=== PATIENT | female | born 1940 | race Caucasian/White ===

== ENCOUNTER 2020-10-24 10:06 | Emergency (ER) | payer MEDICARE, SELFPAY ==
[2020-10-24] VITALS (12 sets, daily range): BP systolic 101–150; BP diastolic 55–97; PULSE 49–81; RESP 16; TEMP 36.7; O2SAT 99–100; BMI 26.9
--- NOTE | 2020-10-24 10:27 | XR_ITS ---
EXAMINATION: XR CHEST CLINICAL INFORMATION: Syncope COMPARISON: October 17, 2019 TECHNIQUE: AP portable view of the chest was obtained. FINDINGS: There is some mild chronic interstitial disease seen at the left base. No acute parenchymal disease, pneumothorax, or pleural effusion. There is some scarring noted within the left upper lobe. Heart normal size. No evidence of pulmonary edema. XR/XR chest 1V IMPRESSION: No acute disease.
--- NOTE | 2020-10-24 10:27 | ECG_ITS ---
Test Reason : WEAKNESS Blood Pressure : / mmHG Vent. Rate : 050 BPM Atrial Rate : 050 BPM P-R Int : 168 ms QRS Dur : 082 ms QT Int : 454 ms P-R-T Axes : 067 -30 -08 degrees QTc Int : 413 ms Sinus bradycardia Left axis deviation Nonspecific T wave abnormality Abnormal ECG When compared to the previous EKG of No significant changes seen Referred By: Leonila Chase Electronically Signed By:NAZARIO SMALL MD
--- NOTE | 2020-10-24 10:52 | CT_ITS ---
EXAMINATION: CT HEAD WITHOUT CONTRAST CLINICAL INFORMATION: Syncope. COMPARISON: None TECHNIQUE: Contiguous axial imaging was performed from the skull base to vertex without intravenous administration of contrast. This CT examination was performed using dose optimization techniques as appropriate, variously including the following: *Automated exposure control *Adjustment of mA and/or kV according to patient size (this includes techniques or standardized protocols for targeted exams where dose is matched to indication/reason for exam; i.e. extremities or head) *Use of iterative reconstruction technique DLP: 766 mGy-cm FINDINGS: There is no evidence of acute intracranial hemorrhage or territorial infarction. No abnormal mass effect or midline shift is seen. [place] to white matter differentiation is well preserved. No extra-axial fluid collections are identified. The lateral ventricles are symmetrical in size and configuration with moderate enlargement. There is mild prominence of cortical sulci. There is mild periventricular hypodensity in both cerebral hemispheres especially in frontoparietal lobes likely chronic small vessel ischemic changes. There is dystrophic calcification of pineal gland is noted. There is benign hyperostosis frontalis interna. The osseous structures and soft tissues are normal. The mastoid air cells and visualized portions of the paranasal sinuses are well aerated. CT/CT head/brain wo con IMPRESSION: No acute intracranial process seen. Chronic small vessel ischemic changes in both cerebral hemispheres.
--- NOTE | 2020-10-24 10:56 | ED_ITS ---
HPI - General Adult General Chief complaint: General Medical Stated complaint: ?DIFF BREATHING,DEMENTIA Time Seen by Provider: 10/24/20 10:27 Source: family Mode of arrival: EMS Limitations: other (dementia, very poor historian) History of Present Illness HPI narrative: 80 y/o female with history of Alzheimer's dementia, hypothyroidism, HLD, hx syncope, bradycardia, remote hx breast cancer, hx cervical cancer presenting via EMS with episode of almost passing out. reports she did not eat dinner last night and while at the breakfast table today she pushed her breakfast away. She then put her head on the table and was shaking all over. She was awake and talking gibberish which is not unusual for her given her dementia history. She also soiled herself, again which is not usual for her. He was able to get her up and walk her to the bedroom to lay down. He reports she was breathing heavily so he called 911. On EMS arrival patient was in no respiratory distress, SPO2 100%. She was awake and alert but confused which is her baseline. Patient denies all complaints on arrival. MD complaint: ?pre-syncope Onset (ago): hour(s) (2) Severity: moderate Relieving factors: none Exacerbating factors: none Associated symptoms: confusion and loss of appetite Treatments prior to arrival: none Related Data Home Medications Medication Instructions Recorded Confirmed Privigen 10/24/20 10/24/20 Synthroid 10/24/20 aspirin 10/24/20 donepezil 10/24/20 simvastatin 10/24/20 Allergies Allergy/AdvReac Type Severity Reaction Status Date / Time No Known Allergies Allergy Unverified 10/24/20 10:23 [No Known Allergies*] Review of Systems Review of Systems: patient with Alzhemier's - she currently denies a full 10 point review of systems Yes Unobtainable due to mental condition PMFSH Past Medical History Attestation statement: The following information was validated with the patient. Medical History Breast CA Dementia Hypercholesteremia Hypothyroid Social History Social History Smoked in Last 30 Days: No Use of substances other than those prescribed or required for medical reasons: No Advance Directives: No Advance Directives Information Provided: No Physical Exam Vital Signs: Vital Signs: Last Vital Signs Temp 98.0 F 10/24/20 10:16 Pulse 81 10/24/20 15:04 Resp 16 10/24/20 12:28 BP 147/97 H 10/24/20 15:04 Pulse Ox 99 10/24/20 10:16 Body Mass Index 26.9 Appearance: Alert. Oriented X1. No acute distress. Eyes: Pupils equal, round and reactive to light. ENT: Pharynx normal. Neck: Normal inspection. Neck supple. CVS: Normal heart rate and rhythm. Pulses normal. Respiratory: No respiratory distress. Breath sounds normal. Abdomen: Soft and nontender. +BS x4 Skin: Skin warm and dry. Normal skin color. Normal skin turgor. No rashes. Extremities: No lower extremity edema. Neuro: Oriented X 1. Pleasantly confused, normal speech. No motor deficit. No sensory deficit. Course Course Course Narrative: 80 y/o female with history of Alzhemier's, bradycardia, hx syncope last October now presenting with ?pre-syncopal episode today. Doubt seizure activity given patient was reportedly awake and alert during the episode and no post-ictal state for EMS. She is orthostatic on arrival, IVF infusing. She offers no complaints at this time and VS are normal. Will get CT head and metabolic workup. Reevaluation(s) Reevaluation #1: EKG showing sinus bradycardia - HR 60s on the monitor now. Could be cause of her possible pre-syncopal event. reports increased anxiety lately. Will repeat othostatic VS after IVF. Reevaluation #2: After 1L IVF patient is still orthostatic but denies dizziness with position changes. HR as low as 49 - not on betablockers. Will check TSH. She denies complaints and would like to go home. Will give 1 more liter IVF and repeat. Reevaluation #3: Orthostatics now negative. HR remain 49-70, patient is asymptomatic. She now appears anxious and is having episodes of shaking her arms and looking frightened. She stops when you tell her to stop. Her is able to calm her down. Medically she is cleared, case was discussed with Case Management. is denying the need for more services at this time. Will get PT evaluation. Additional Reevaluation(s): Patient did well with physical therapy. She does not meet criteria for inpatient admission and does not need acute rehab at this time. refusing VNA services. He would like to bring her home. Will d/c home in the care of her with plan to follow up with PCP this week. expresses understand and planning on contacting PCP in the morning. Instructed to return to hospital if symptoms recur. Medical Decision Making Lab Data Result diagrams: 10/24/20 10:52 10/24/20 10:52 Labs: Lab Results 10/24/20 10/24/20 10/24/20 Range/Units 10:52 10:52 10:52 WBC 7.0 (4.8-10.8) X10*3/uL RBC 4.27 (4.20-5.50) X10*6/uL Hgb 13.7 (12.0-16.0) g/dl Hct 40.1 (37-47) % MCV 93.9 (80-98) fL MCH 32.1 (27.0-33.0) pg MCHC 34.2 (31.0-35.0) g/dl RDW 12.7 (11.0-16.0) % Plt Count 214 (160-400) X10*3/uL MPV 9.4 (9.4-12.3) fL Immature Gran % (Auto) 0.3 (0.0-0.4) % Neut % (Auto) 72.2 (45-73) % Lymph % (Auto) 15.6 L (20-40) % [place] % (Auto) 8.0 (2-11) % Eos % (Auto) 2.9 (0-4) % Baso % (Auto) 1.0 (0-2) % Lymph # (Auto) 1.1 L (1.2-4.9) X10*3/uL [place] # (Auto) 0.6 (0.1-1.2) X10*3/uL Eos # (Auto) 0.2 (0.0-0.4) X10*3/uL Baso # (Auto) 0.1 (0.0-0.2) X10*3/uL Abs Immat Gran (auto) 0.02 (0.00-0.03) X10*3/uL Absolute Neuts (auto) 5.1 (2.0-8.3) X10*3/uL Absolute Nucleated RBC 0.000 (0.0-0.012) X10*3/uL Nucleated RBC % (auto) 0.0 (0.0-0.2) /100WBC Sodium 138 (135-145) mmol/L Potassium 4.3 (3.3-5.1) mmol/l Chloride 106 (96-108) mmol/L Carbon Dioxide 23 (22-29) mmol/L Anion Gap 13 (12-20) BUN 19 H (9-16) mg/dL Creatinine 1.12 (0.5-1.4) mg/dL Estim Creat Clear Calc 46.0 Estimated GFR 47 Random Glucose 101 (60-115) mg/dL Calcium 9.2 (8.4-10.2) mg/dL Magnesium 2.2 (1.6-2.6) mg/dL Total Bilirubin 1.5 H (0.0-1.0) mg/dL Direct Bilirubin 0.5 (0.0-0.5) mg/dL AST 23 (5-31) U/L ALT 17 (0-31) U/L Alkaline Phosphatase 64 (39-117) U/L Troponin I High Sens 3.9 (<3.5-17.0) ng/L Total Protein 6.5 (6.5-8.0) g/dL Albumin 3.8 (3.5-5.0) g/dL TSH 4.03 H (0.32-4.0) uIU/mL Urine Color Urine Appearance Urine pH (5.0-8.0) Ur Specific [place] (1.005-1.025) Urine Protein (NEG-TRACE) MG/DL Urine Glucose (UA) (NEG) MG/DL Urine Ketones (NEG) MG/DL Urine Blood (NEG) Urine Nitrite (NEG) Ur Leukocyte Esterase (NEG) 10/24/20 Range/Units 11:09 WBC (4.8-10.8) X10*3/uL RBC (4.20-5.50) X10*6/uL Hgb (12.0-16.0) g/dl Hct (37-47) % MCV (80-98) fL MCH (27.0-33.0) pg MCHC (31.0-35.0) g/dl RDW (11.0-16.0) % Plt Count (160-400) X10*3/uL MPV (9.4-12.3) fL Immature Gran % (Auto) (0.0-0.4) % Neut % (Auto) (45-73) % Lymph % (Auto) (20-40) % [place] % (Auto) (2-11) % Eos % (Auto) (0-4) % Baso % (Auto) (0-2) % Lymph # (Auto) (1.2-4.9) X10*3/uL [place] # (Auto) (0.1-1.2) X10*3/uL Eos # (Auto) (0.0-0.4) X10*3/uL Baso # (Auto) (0.0-0.2) X10*3/uL Abs Immat Gran (auto) (0.00-0.03) X10*3/uL Absolute Neuts (auto) (2.0-8.3) X10*3/uL Absolute Nucleated RBC (0.0-0.012) X10*3/uL Nucleated RBC % (auto) (0.0-0.2) /100WBC Sodium (135-145) mmol/L Potassium (3.3-5.1) mmol/l Chloride (96-108) mmol/L Carbon Dioxide (22-29) mmol/L Anion Gap (12-20) BUN (9-16) mg/dL Creatinine (0.5-1.4) mg/dL Estim Creat Clear Calc Estimated GFR Random Glucose (60-115) mg/dL Calcium (8.4-10.2) mg/dL Magnesium (1.6-2.6) mg/dL Total Bilirubin (0.0-1.0) mg/dL Direct Bilirubin (0.0-0.5) mg/dL AST (5-31) U/L ALT (0-31) U/L Alkaline Phosphatase (39-117) U/L Troponin I High Sens (<3.5-17.0) ng/L Total Protein (6.5-8.0) g/dL Albumin (3.5-5.0) g/dL TSH (0.32-4.0) uIU/mL Urine Color YELLOW Urine Appearance CLEAR Urine pH 7.5 (5.0-8.0) Ur Specific [place] 1.010 (1.005-1.025) Urine Protein NEG (NEG-TRACE) MG/DL Urine Glucose (UA) NEG (NEG) MG/DL Urine Ketones NEG (NEG) MG/DL Urine Blood NEG (NEG) Urine Nitrite NEG (NEG) Ur Leukocyte Esterase NEG (NEG) ECG Data Attestation: I personally reviewed and interpreted this ECG as follows: Interpretation: sinus bradycardia, HR 50, nonspecific T wave abnormality, left axis deviasion Discharge Plan Discharge Clinical Impression: Bradycardia, Pre-syncope Patient Disposition: Home, Self-Care Instructions: Bradycardia (ED), Anxiety (ED) Additional Instructions: Your lab workup today was unremarkable. Your CT scan of your head showed no acute changes. Your chest x-ray was normal and oxygen level was normal. You were likely slightly dehydrated. You were given IV fluids with improvement in your vital signs. Rest and stay hydrated. It is likely that increased anxiety is playing a role in these episodes. Recommend following up with your doctor tomorrow. Recommend following up with Cardiology for further assessment of your occasionally slow heart rate. You have a documented history of this dating back to last year. If you develop recurrent episodes or develop any other concerning symptom call 911 or come back to the ER for further evaluation. Prescriptions: No Action Privigen RF: 0 Synthroid RF: 0 aspirin RF: 0 donepezil RF: 0 simvastatin RF: 0 Referrals: Elias Sylvester MD [Physician] - 3 days (sinus bradycardia)
[2020-10-24 10:58] LABS: Basophils Absolute Auto 0.1 X10*3/uL (0.0-0.2); Eosinophils Absolute Auto 0.2 X10*3/uL (0.0-0.4); Eosinophils Percent Auto 2.9 % (0-4); Hematocrit 40.1 % (37-47); Hemoglobin 13.7 g/dl (12.0-16.0); Imm Gran Abs Auto 0.02 X10*3/uL (0.00-0.03); Imm Gran Pct Auto 0.3 % (0.0-0.4); Lymphocytes Absolute Auto 1.1 X10*3/uL (1.2-4.9); Lymphocytes Percent Auto 15.6 % (20-40); MANUAL DIFF FLAG NO; Mean Corpuscular HGB Conc 34.2 g/dl (31.0-35.0); Mean Corpuscular Hemoglobin 32.1 pg (27.0-33.0); Mean Corpuscular Volume 93.9 fL (80-98); Mean Platelet Volume 9.4 fL (9.4-12.3); Monocytes Absolute Auto 0.6 X10*3/uL (0.1-1.2); Neutrophils Absolute Auto 5.1 X10*3/uL (2.0-8.3); Neutrophils Percent Auto 72.2 % (45-73); Platelet Count 214 X10*3/uL (160-400); Red Blood Count 4.27 X10*6/uL (4.20-5.50); Red Cell Distribution Width 12.7 % (11.0-16.0)
[2020-10-24] MEDS: 0.9 % Sodium Chloride 1,000 ML 999 ML IVCONT ×2 (11:18→12:59)
[2020-10-24 11:22] LABS: Glucose Urine UA NEG (NEG); Leukocyte Esterase Urine NEG (NEG); Nitrite Urine NEG (NEG); PH 7.5 (5.0-8.0); Urine Blood NEG (NEG); Urine Ketones NEG (NEG); Urine Protein NEG (NEG-TRACE)
[2020-10-24 11:23] LABS: Appearance Urine CLEAR; Color Urine YELLOW
[2020-10-24 11:30] LABS: Alanine Aminotransferase 17 U/L (0-31); Albumin Level 3.8 g/dL (3.5-5.0); Alkaline Phosphatase 64 U/L (39-117); Anion Gap 13 (12-20); Aspartate Amino Transferase 23 U/L (5-31); Bilirubin Direct 0.5 mg/dL (0.0-0.5); Bilirubin Total 1.5 mg/dL (0.0-1.0); Blood Urea Nitrogen 19 mg/dL (9-16); Calcium 9.2 mg/dL (8.4-10.2); Carbon Dioxide 23 mmol/L (22-29); Chloride 106 mmol/L (96-108); Estimated Glomerular Filt Rate 47; Glucose Random 101 mg/dL (60-115); Magnesium 2.2 mg/dL (1.6-2.6); Potassium 4.3 mmol/l (3.3-5.1); Sodium 138 mmol/L (135-145); Total Protein 6.5 g/dL (6.5-8.0)
[2020-10-24 11:33] LABS: Troponin-I High Sensitivity 3.9 ng/L (<3.5-17.0)
[2020-10-24 13:54] LABS: Thyroid Stimulating Hormone 4.03 uIU/mL (0.32-4.0)
== END 2020-10-24 17:01 | disposition home or self-care (01) ==
PROVIDERS: Physician Assistant; Emergency Provider Emergency Medicine; PCP Internal Medicine
DX: R55 Syncope and collapse (principal); R00.1 Bradycardia, unspecified; F03.90 Unspecified dementia, unspecified severity, without behavioral disturbance, psychotic disturbance, mood disturbance, and anxiety; Z85.3 Personal history of malignant neoplasm of breast
CPT/HCPCS: 36415; 70450; 71045; 80048; 80076; 81003; 83735; 84443; 84484; 85025; 93005; 96360; 96361; 97161; 99284

== ENCOUNTER 2020-12-29 23:09 | Emergency (ER) | payer MEDICARE, SELFPAY ==
--- NOTE | ~2020-12-29 | XR_ITS ---
EXAMINATION: XR CHEST CLINICAL INFORMATION: Weakness COMPARISON: 10/24/2020 TECHNIQUE: Frontal view of the chest was obtained. FINDINGS: The lungs are well expanded. There is no focal consolidation, edema, or effusion. No pneumothorax. The cardiomediastinal silhouette is within normal limits. No acute osseous abnormality. XR/XR chest 1V IMPRESSION: No acute pulmonary finding.
--- NOTE | ~2020-12-29 | CT_ITS ---
EXAMINATION: CT HEAD WITHOUT CONTRAST CLINICAL INFORMATION: Altered mental status. History of dementia. COMPARISON: 10/24/2020 TECHNIQUE: Contiguous axial imaging was performed from the skull base to vertex without intravenous contrast. This CT examination was performed using dose optimization techniques as appropriate, variously including the following: * Automated exposure control * Adjustment of mA and/or kV according to patient size (this includes techniques or standardized protocols for targeted exams where dose is matched to indication/reason for exam; i.e. extremities or head) Use of iterative reconstruction technique DLP: 797 mGy-cm. FINDINGS: There is no evidence of acute intracranial hemorrhage or territorial infarction. No abnormal mass effect or midline shift is seen. [place] to white matter differentiation is well preserved. No extra-axial fluid collections are identified. No hydrocephalus. Proportional prominence of the ventricles and sulcal spaces is consistent with mild volume loss. Patchy periventricular and deep white matter hypoattenuation is consistent with mild small vessel ischemic changes. The osseous structures and soft tissues are normal. The mastoid air cells and visualized portions of the paranasal sinuses are well aerated. CT/CT head/brain wo con IMPRESSION: No acute intracranial pathology.
[2020-12-29 23:31] VITALS: BP 112/62; PULSE 60; RESP 18; TEMP 36.7; O2SAT 98; BMI 20.2
[2020-12-30] VITALS (17 sets, daily range): BP systolic 123–137; BP diastolic 48–61; PULSE 54–67; RESP 13–18; TEMP 36.3–36.6; O2SAT 93–99
--- NOTE | 2020-12-30 00:12 | ED_ITS ---
HPI - General Adult General Chief complaint: General Medical Stated complaint: dementia Time Seen by Provider: 12/29/20 23:48 Source: family and EMS Mode of arrival: EMS Limitations: altered mental status History of Present Illness HPI narrative: 80 yo female with past medical history of HLD, hypothyroidism, dementia here from home. Patient lives with the in an assisted living facility. Tells me that the patient has been declining with her dementia for the last weeks to months and occasionally has verbal and physical outbursts. He tells me she can be very angry and hit and punch and kick. Today she became angry with him and refused to come of the bathroom when asked. He had to call EMS and have her transported here. He does tell me that for the last 2 days the patient has had little to eat or drink which is not abnormal for her. He is worried that she might be dehydrated. Related Data Home Medications Medication Instructions Recorded Confirmed fluoxetine 10 mg PO DAILY 12/29/20 12/29/20 levothyroxine 88 mcg PO DAILY 12/29/20 12/29/20 memantine 10 mg PO BID 12/29/20 12/29/20 simvastatin 20 mg PO DAILY 12/29/20 12/29/20 Allergies Allergy/AdvReac Type Severity Reaction Status Date / Time No Known Allergies Allergy Verified 12/29/20 23:39 [No Known Allergies*] Review of Systems Review of Systems: Yes Unobtainable due to mental status (Patient very confused, agitated ) Neurologic: Denies Abnormal speech present and Reports confusion Psychiatric: Psychiatric: Reports confusion PMFSH Past Medical History Attestation statement: The following information was validated with the patient. Source: old records reviewed and nursing notes reviewed Medical History Breast CA Dementia Hypercholesteremia Hypothyroid Social History Social History Advance Directives: No Physical Exam Vital Signs: Vital Signs: Last Vital Signs Temp 97.8 F 12/30/20 00:40 Pulse 60 12/29/20 23:31 Resp 16 12/30/20 00:40 BP 126/61 12/30/20 00:40 Pulse Ox 99 12/30/20 00:40 Body Mass Index 20.2 Const: Other: agitated, confused General: confusion Orientation/consciousness: confusion Limitations: altered mental status HENMT: Head: Yes normal to inspection Ears: hearing grossly normal bilaterally General nose exam: Normal external nose present Face and sinus: Yes normal facial exam Mouth: Normal oral and palatal mucosa present Throat: Yes posterior oropharynx normal Eyes: General: appearance normal, both eyes and all related structures Pupils: Equal, round and reactive pupils present Neck: Neck: Yes normal visual inspection Chest: Chest palpation & inspection: normal inspection of the chest Resp: Effort & Inspection: normal respiratory effort Auscultation: clear to auscultation bilaterally Cardio: Rate: regular rate Rhythm: regular rhythm Peripheral pulses: Peripheral pulses 2+ throughout GI: Inspection: Yes normal to inspection Palpation (GI): Soft to palpation and nontender Auscultation: normal bowel sounds Back/Spine/Pelvis: Thoracic/Lumbar Spine: thoracic and lumbar spine normal to inspection Skin: General skin exam: no rashes or lesions noted Neuro: General: moves all extremities, confusion and Unable to assess gait Cranial nerves: Yes Equal, round and reactive pupils present, Yes Normal facial strength present and Yes Midline tongue present Cognition (Neuro): abnormal cognition Speech: No Abnormal speech present Gait exam (Neuro): Unable to assess gait Sensory Exam: Normal double simultaneous stimulation for sensation Extrem: General: Yes normal to inspection Course Course Course Narrative: 80 yo female with past medical history of HLD, dementia and hypothyroidism here with agitation, verbal outburst at home, decreased po intake last 24-48 hrs. On arrival patient alert, confused. Moving all extremities, agitated and labile. Vital signs stable. Will check labs, UA, EKG, CXR, COVID screen. Discussed with and it sounds like the patient's dementia is progressing and he shares some concern about her at home. Will involve case management. I'm not sure that a crisis consult as patient is not suicidal, does not have safety concerns with behavior although he recognizes his own limitations as her caregiver and he may need additional help. Will defer CARE team/BHN evaluation to if needed for placement. 0030-Unfortunately the patient is not very agreeable to care. D/t safety concerns from staff and patient not being redirectable. EKG obtained with >8 staff members. IM haldol ordered. 0115-Patient transported to imaging. Required 1m IV ativan d/t agitation. Labs reviewed and unremarkable. COVID screen negative. UA pending. Imaging pending. 0200-Sign out to night team pending above. Medical Decision Making MDM Narrative Medical decision making narrative: dementia, ICH vs lesion, electrolyte abnormality, anemia, ACS, underlying infection (PNA, UTI) Medical Records Medical records reviewed: Yes I reviewed the patient's medical records. Lab Data Lab results reviewed: Yes I reviewed the patient's lab results. Result diagrams: 12/30/20 00:37 12/30/20 00:37 Labs: Lab Results 12/30/20 12/30/20 12/30/20 Range/Units 00:37 00:37 00:37 WBC 10.1 (4.8-10.8) X10*3/uL RBC 4.28 (4.20-5.50) X10*6/uL Hgb 13.5 (12.0-16.0) g/dl Hct 39.3 (37-47) % MCV 91.8 (80-98) fL MCH 31.5 (27.0-33.0) pg MCHC 34.4 (31.0-35.0) g/dl RDW 12.7 (11.0-16.0) % Plt Count 242 (160-400) X10*3/uL MPV 10.1 (9.4-12.3) fL Immature Gran % (Auto) 0.3 (0.0-0.4) % Neut % (Auto) 57.9 (45-73) % Lymph % (Auto) 27.8 (20-40) % Bledsoe % (Auto) 10.2 (2-11) % Eos % (Auto) 2.8 (0-4) % Baso % (Auto) 1.0 (0-2) % Lymph # (Auto) 2.8 (1.2-4.9) X10*3/uL [place] # (Auto) 1.0 (0.1-1.2) X10*3/uL Eos # (Auto) 0.3 (0.0-0.4) X10*3/uL Baso # (Auto) 0.1 (0.0-0.2) X10*3/uL Abs Immat Gran (auto) 0.03 (0.00-0.03) X10*3/uL Absolute Neuts (auto) 5.9 (2.0-8.3) X10*3/uL Absolute Nucleated RBC 0.000 (0.0-0.012) X10*3/uL Nucleated RBC % (auto) 0.0 (0.0-0.2) /100WBC Sodium 140 (135-145) mmol/L Potassium 4.0 (3.3-5.1) mmol/L Chloride 109 H (96-108) mmol/L Carbon Dioxide 19 L (22-29) mmol/L Anion Gap 16 (12-20) BUN 21 H (9-16) mg/dL Creatinine 1.09 (0.5-1.4) mg/dL Estim Creat Clear Calc 38.1 Estimated GFR 49 Random Glucose 99 (60-115) mg/dL Calcium 9.7 (8.4-10.2) mg/dL Magnesium 2.3 (1.6-2.6) mg/dL Total Bilirubin 1.3 H (0.0-1.0) mg/dL Direct Bilirubin 0.5 (0.0-0.5) mg/dL AST 27 (5-31) U/L ALT 18 (0-31) U/L Alkaline Phosphatase 66 (39-117) U/L Total Protein 6.8 (6.5-8.0) g/dL Albumin 3.9 (3.5-5.0) g/dL Urine Color Urine Appearance Urine pH (5.0-8.0) Ur Specific [place] (1.005-1.025) Urine Protein (NEG-TRACE) MG/DL Urine Glucose (UA) (NEG) MG/DL Urine Ketones (NEG) MG/DL Urine Blood (NEG) Urine Nitrite (NEG) Ur Leukocyte Esterase (NEG) Urine RBC (0) /HPF Urine WBC (0-4) /HPF Urine WBC Clumps Ur Squamous Epith Cells /LPF Ur Renal Epithelial Cell /LPF Urine Bacteria /LPF Hyaline Casts /LPF Urine Mucus /LPF COVID-19 ([facility]) Negative (Negative) COVID-19 Clin Com See Note 12/30/20 Range/Units 00:50 WBC (4.8-10.8) X10*3/uL RBC (4.20-5.50) X10*6/uL Hgb (12.0-16.0) g/dl Hct (37-47) % MCV (80-98) fL MCH (27.0-33.0) pg MCHC (31.0-35.0) g/dl RDW (11.0-16.0) % Plt Count (160-400) X10*3/uL MPV (9.4-12.3) fL Immature Gran % (Auto) (0.0-0.4) % Neut % (Auto) (45-73) % Lymph % (Auto) (20-40) % Bledsoe % (Auto) (2-11) % Eos % (Auto) (0-4) % Baso % (Auto) (0-2) % Lymph # (Auto) (1.2-4.9) X10*3/uL [place] # (Auto) (0.1-1.2) X10*3/uL Eos # (Auto) (0.0-0.4) X10*3/uL Baso # (Auto) (0.0-0.2) X10*3/uL Abs Immat Gran (auto) (0.00-0.03) X10*3/uL Absolute Neuts (auto) (2.0-8.3) X10*3/uL Absolute Nucleated RBC (0.0-0.012) X10*3/uL Nucleated RBC % (auto) (0.0-0.2) /100WBC Sodium (135-145) mmol/L Potassium (3.3-5.1) mmol/L Chloride (96-108) mmol/L Carbon Dioxide (22-29) mmol/L Anion Gap (12-20) BUN (9-16) mg/dL Creatinine (0.5-1.4) mg/dL Estim Creat Clear Calc Estimated GFR Random Glucose (60-115) mg/dL Calcium (8.4-10.2) mg/dL Magnesium (1.6-2.6) mg/dL Total Bilirubin (0.0-1.0) mg/dL Direct Bilirubin (0.0-0.5) mg/dL AST (5-31) U/L ALT (0-31) U/L Alkaline Phosphatase (39-117) U/L Total Protein (6.5-8.0) g/dL Albumin (3.5-5.0) g/dL Urine Color DARK YELLOW Urine Appearance CLEAR Urine pH 5.5 (5.0-8.0) Ur Specific [place] >= 1.030 H (1.005-1.025) Urine Protein NEG (NEG-TRACE) MG/DL Urine Glucose (UA) NEG (NEG) MG/DL Urine Ketones NEG (NEG) MG/DL Urine Blood NEG (NEG) Urine Nitrite NEG (NEG) Ur Leukocyte Esterase 1+ H (NEG) Urine RBC 0-2 (0) /HPF Urine WBC 10-14 H (0-4) /HPF Urine WBC Clumps NOTED Ur Squamous Epith Cells TRACE /LPF Ur Renal Epithelial Cell TRACE /LPF Urine Bacteria 2+ /LPF Hyaline Casts 0-2 /LPF Urine Mucus 2+ /LPF COVID-19 ([facility]) (Negative) COVID-19 Clin Com Imaging Data CT scan - head: Attestation: I personally reviewed and interpreted this imaging study as follows: Radiologist's impression: EXAMINATION: CT HEAD WITHOUT CONTRAST CLINICAL INFORMATION: Altered mental status. History of dementia. COMPARISON: 10/24/2020 TECHNIQUE: Contiguous axial imaging was performed from the skull base to vertex without intravenous contrast. This CT examination was performed using dose optimization techniques as appropriate, variously including the following: * Automated exposure control * Adjustment of mA and/or kV according to patient size (this includes techniques or standardized protocols for targeted exams where dose is matched to indication/reason for exam; i.e. extremities or head) Use of iterative reconstruction technique DLP: 797 mGy-cm. FINDINGS: There is no evidence of acute intracranial hemorrhage or territorial infarction. No abnormal mass effect or midline shift is seen. [place] to white matter differentiation is well preserved. No extra-axial fluid collections are identified. No hydrocephalus. Proportional prominence of the ventricles and sulcal spaces is consistent with mild volume loss. Patchy periventricular and deep white matter hypoattenuation is consistent with mild small vessel ischemic changes. The osseous structures and soft tissues are normal. The mastoid air cells and visualized portions of the paranasal sinuses are well aerated. CT/CT head/brain wo con IMPRESSION: No acute intracranial pathology. Chest x-ray: Attestation: I personally reviewed and interpreted this imaging study as follows: Radiologist's impression: EXAMINATION: XR CHEST CLINICAL INFORMATION: Weakness COMPARISON: 10/24/2020 TECHNIQUE: Frontal view of the chest was obtained. FINDINGS: The lungs are well expanded. There is no focal consolidation, edema, or effusion. No pneumothorax. The cardiomediastinal silhouette is within normal limits. No acute osseous abnormality. XR/XR chest 1V IMPRESSION: No acute pulmonary finding. ECG Data Attestation: I personally reviewed and interpreted this ECG as follows: Interpretation: Difficult to interpret d/t artifact present, patient very agitated. Rate is 72, QTC 402, normal QRS. Discharge Plan Discharge Clinical Impression: Dementia Prescriptions: No Action levothyroxine 88 mcg Tablet 88 mcg PO DAILY RF: 0 simvastatin 20 mg Tablet 20 mg PO DAILY RF: 0 fluoxetine 10 mg Capsule 10 mg PO DAILY RF: 0 memantine 10 mg Tablet 10 mg PO BID RF: 0
--- NOTE | 2020-12-30 00:13 | ECG_ITS ---
Test Reason : ALTERED Blood Pressure : / mmHG Vent. Rate : 072 BPM Atrial Rate : 072 BPM P-R Int : 000 ms QRS Dur : 078 ms QT Int : 368 ms P-R-T Axes : 000 -35 059 degrees QTc Int : 402 ms Poor data quality Possible Normal sinus rhythm Left axis deviation Nonspecific T wave abnormality Abnormal ECG When compared with ECG of 24-OCT-2020 10:43, T wave inversion no longer evident in Inferior leads T wave inversion now evident in Anterior leads Referred By: Shirley Miller Electronically Signed By:NAZARIO SMALL MD
[2020-12-30] MEDS: Haloperidol Lactate 5 MG/ML VIAL IM (00:33)
[2020-12-30 00:44] LABS: MANUAL DIFF FLAG NO
[2020-12-30 00:47] LABS: Basophils Absolute Auto 0.1 X10*3/uL (0.0-0.2); Eosinophils Absolute Auto 0.3 X10*3/uL (0.0-0.4); Eosinophils Percent Auto 2.8 % (0-4); Hematocrit 39.3 % (37-47); Hemoglobin 13.5 g/dl (12.0-16.0); Imm Gran Abs Auto 0.03 X10*3/uL (0.00-0.03); Imm Gran Pct Auto 0.3 % (0.0-0.4); Lymphocytes Absolute Auto 2.8 X10*3/uL (1.2-4.9); Lymphocytes Percent Auto 27.8 % (20-40); Mean Corpuscular HGB Conc 34.4 g/dl (31.0-35.0); Mean Corpuscular Hemoglobin 31.5 pg (27.0-33.0); Mean Corpuscular Volume 91.8 fL (80-98); Mean Platelet Volume 10.1 fL (9.4-12.3); Monocytes Percent Auto 10.2 % (2-11); Neutrophils Absolute Auto 5.9 X10*3/uL (2.0-8.3); Neutrophils Percent Auto 57.9 % (45-73); Platelet Count 242 X10*3/uL (160-400); Red Blood Count 4.28 X10*6/uL (4.20-5.50); Red Cell Distribution Width 12.7 % (11.0-16.0); White Blood Count 10.1 X10*3/uL (4.8-10.8)
[2020-12-30 01:04] LABS: COVID-19 Test Negative (Negative)
[2020-12-30 01:15] LABS: Alanine Aminotransferase 18 U/L (0-31); Albumin Level 3.9 g/dL (3.5-5.0); Alkaline Phosphatase 66 U/L (39-117); Anion Gap 16 (12-20); Aspartate Amino Transferase 27 U/L (5-31); Bilirubin Direct 0.5 mg/dL (0.0-0.5); Bilirubin Total 1.3 mg/dL (0.0-1.0); Blood Urea Nitrogen 21 mg/dL (9-16); Calcium 9.7 mg/dL (8.4-10.2); Carbon Dioxide 19 mmol/L (22-29); Chloride 109 mmol/L (96-108); Creatinine Clr Calc Pharmacy 38.1; Estimated Glomerular Filt Rate 49; Glucose Random 99 mg/dL (60-115); Magnesium 2.3 mg/dL (1.6-2.6); Sodium 140 mmol/L (135-145); Total Protein 6.8 g/dL (6.5-8.0)
[2020-12-30] MEDS: LORazepam 2 MG/ML VIAL 1 MG IVPUSH (01:16)
[2020-12-30 01:25] LABS: Glucose Urine UA NEG (NEG); Leukocyte Esterase Urine 1+ (NEG); Nitrite Urine NEG (NEG); PH 5.5 (5.0-8.0); Specific Gravity - Urine >= 1.030 (1.005-1.025); UACC Culture Trigger YES; Urine Blood NEG (NEG); Urine Ketones NEG (NEG); Urine Protein NEG (NEG-TRACE)
[2020-12-30 01:26] LABS: Appearance Urine CLEAR; Color Urine DARK YELLOW
[2020-12-30 01:43] LABS: Bacteria Urine 2+ /LPF; RBC Urine 0-2 /HPF (0); Renal Epithelial Cells Urine TRACE /LPF; Squamous Epithelial Cell Urine TRACE /LPF
[2020-12-30 01:44] LABS: Hyaline Casts Urine 0-2 /LPF; Mucus Urine 2+ /LPF; WBC Clumps Urine NOTED
[2020-12-30] MEDS: cefTRIAXone sodium 1 GM in 0.9 % Sodium Chloride 50 ML IV (03:07)
--- NOTE | 2020-12-30 03:55 | PC.NURSE ---
PT REQUIRED CHEMICAL RESTRAINT D/T INABILITY TO COOPERATE/ALLOW MEDICAL CARE TO BE GIVE @ 0033 & 011. SEE PAPER DOCUMENTATION FOR FURTHER DETAIL.
--- NOTE | 2020-12-30 07:03 | PC.NURSE ---
Recieved nurse to nurse report from Teddy RN. Pt resting in room at this time, no sign of distress noted, respirations even/unlabored bilaterally. Awaiting PT/CM. Will continue to monitor.
--- NOTE | 2020-12-30 09:15 | MHC.CM.ED ---
pt's , sadiq/HCP, is in the [facility] lobby. this interview was conducted c him. pt did well c PT eval, home no svcs recommended. pt does not use a walker or any other AD c ambulation. sadiq reports that he is the primary caregiver for his but that he has a patient care associate come to their home 2days/wk for a 4 hrs time period to give him free time. he said he is increasing the patient care associate svc to 3d/wk. pt has two daughters, but the do not live in the area. denies the need for vna or home PT; he wants to take his home s any svcs. he does not want her going to a STR at this time. dc plan is home no svcs. maria del rosario rn and PA are aware of this dc plan. cm to cont. to follow.
== END 2020-12-30 09:41 | disposition home or self-care (01) ==
PROVIDERS: Nurse Practitioner Family; Emergency Provider Internal Medicine; PCP Internal Medicine
DX: F03.91 Unspecified dementia, unspecified severity, with behavioral disturbance (principal); N39.0 Urinary tract infection, site not specified; Z20.822 Contact with and (suspected) exposure to COVID-19; E78.5 Hyperlipidemia, unspecified; Z85.3 Personal history of malignant neoplasm of breast
CPT/HCPCS: 36415; 51701; 70450; 71045; 80048; 80076; 81001; 81003; 83735; 85025; 87086; 87088; 87186; 87635; 93005; 96365; 96372; 96374; 96375; 97163; 99284; 99285; J0696; J2060

== ENCOUNTER 2021-01-03 09:46 | Emergency (ER) | payer MEDICARE, SELFPAY ==
[2021-01-03] VITALS (7 sets, daily range): BP systolic 122–161; BP diastolic 42–69; PULSE 50–94; RESP 16–18; TEMP 36.6–36.8; O2SAT 95–99; BMI 31.5
--- NOTE | ~2021-01-03 | CT_ITS ---
EXAMINATION: CT HEAD WITHOUT CONTRAST CLINICAL INFORMATION: Acute mental status change COMPARISON: Previous head CT most recent 12/30/2020 TECHNIQUE: Contiguous axial imaging was performed from the skull base to vertex without intravenous administration of contrast. This CT examination was performed using dose optimization techniques as appropriate, variously including the following: *Automated exposure control *Adjustment of mA and/or kV according to patient size (this includes techniques or standardized protocols for targeted exams where dose is matched to indication/reason for exam; i.e. extremities or head) *Use of iterative reconstruction technique DLP: 777 mGy-cm FINDINGS: There is no evidence of an extra-axial collection. There is no evidence of intra-axial or extra-axial hemorrhage. The ventricles and extra-axial CSF spaces are prominent suggestive of mild generalized atrophy. There is nonspecific periventricular white matter disease. No mass, mass effect or infarct is seen. Review of bone windows is normal. Paranasal sinuses, mastoid air cells and middle ears are clear.. CT/CT head/brain wo con IMPRESSION: No acute findings. Generalized atrophy and nonspecific periventricular white matter disease similar to previous exam.
--- NOTE | ~2021-01-03 | CT_ITS ---
EXAMINATION: CT CERVICAL SPINE WITHOUT CONTRAST CLINICAL INFORMATION: Mental status change COMPARISON: None TECHNIQUE: Axial images through the cervical spine without contrast. Sagittal and coronal reconstructions on the technologist workstation were performed. This CT examination was performed using dose optimization techniques as appropriate, variously including the following: *Automated exposure control *Adjustment of mA and/or kV according to patient size (this includes techniques or standardized protocols for targeted exams where dose is matched to indication/reason for exam; i.e. extremities or head) *Use of iterative reconstruction technique DLP: 537 mGy-cm FINDINGS: Bone alignment is normal. No fracture or dislocation is seen. There is multilevel degenerative spondylosis and degenerative disc disease from C3-C4 to T1-T2. Prevertebral soft tissues are normal. The lung apices are clear. CT/CT cervical spine wo con IMPRESSION: Degenerative changes.
--- NOTE | ~2021-01-03 | XR_ITS ---
EXAMINATION: XR CHEST CLINICAL INFORMATION: Weakness COMPARISON: Previous chest x-ray most recent 12/30/2020 TECHNIQUE: Frontal view of the chest was obtained. FINDINGS: The cardiac and mediastinal contours are stable. There is chronic scarring or subsegmental atelectasis in the left perihilar upper lung that is unchanged. The lungs are otherwise clear. There is no pleural effusion or pneumothorax. There is curvature of the lower thoracic spine to the right and degenerative change. XR/XR chest 1V IMPRESSION: Scarring or chronic subsegmental atelectasis in the left upper lung similar to recent exams.
[2021-01-03 10:00] LABS: Glucose, Whole Blood 84 mg/dL (60-115)
--- NOTE | 2021-01-03 10:18 | ED.WEAKNESS ---
HPI - Weakness General Chief complaint: Seizure Stated complaint: FOUND ?SYNC VS SZ, LETHARGIC,NECK PAIN W/COLLAR Time Seen by Provider: 01/03/21 09:57 Source: patient, EMS and old records reviewed Mode of arrival: EMS Limitations: other (dementia) History of Present Illness HPI Narrative: 80 yo female with dementia, UTI on cephalexin since 12/29 but only S to doxy and macrobid - ?seizure vs syncope at home was in bed, slid out no trauma but told EMS ?LOC and she was angry when she woke up Complaint: generalized weakness Onset (ago): minute(s) (just TRASH COLLECTOR) Duration: now resolved Location: generalized Migration: none Severity: mild Exacerbating factors: none Context: recent illness Associated symptoms: denies other symptoms Related Data Home Medications Medication Instructions Recorded Confirmed fluoxetine 10 mg PO DAILY 12/29/20 12/30/20 levothyroxine 88 mcg PO DAILY 12/29/20 12/30/20 memantine 10 mg PO BID 12/29/20 12/30/20 simvastatin 20 mg PO DAILY 12/29/20 12/30/20 Previous Rx's Medication Instructions Recorded cephalexin 500 mg PO BID 10 Days #20 cap 12/30/20 Allergies Allergy/AdvReac Type Severity Reaction Status Date / Time No Known Allergies Allergy Verified 12/29/20 23:39 [No Known Allergies*] Review of Systems Review of Systems: ROS unable to be obtained due to altered mental status FOR[facility]LY [facility], [facility] Past Medical History Attestation statement: The following information was validated with the patient. Source: old records reviewed Medical History Breast CA Dementia Hypercholesteremia Hypothyroid Social History Social History Alcohol intake: never Smoking Status: Never smoker Use of substances other than those prescribed or required for medical reasons: No Advance Directives: No Advance Directives Information Provided: No Physical Exam Vital Signs: Vital Signs: Last Vital Signs Temp 97.8 F 01/03/21 12:00 Pulse 66 01/03/21 13:00 Resp 16 01/03/21 14:00 BP 139/59 L 01/03/21 13:00 Pulse Ox 95 01/03/21 13:00 Body Mass Index 31.5 Appearance: Alert. Oriented X1. No acute distress. Eyes: Pupils equal, round and reactive to light. ENT: Pharynx normal. Neck: Normal inspection. Neck supple. cervical collar in place CVS: Normal heart rate and rhythm. Pulses normal. Respiratory: No respiratory distress. Breath sounds normal. Abdomen: Soft and nontender. Skin: Skin warm and dry. Normal skin color. Normal skin turgor. Extremities: No lower extremity edema. No calf ttp Neuro: Oriented X 1 No motor deficit. No sensory deficit. Course Course Course Narrative: review of notes shows the patient has had these events since 2018, has signed out AMA in the past, no documented seizures, repeat troponin pending. daughter Serena [phone] or Marcia [phone] pending UA - but no signs of sepsis can be on oral doxycycline, repeat troponin negative daughter Serena explained episodes to me where she has episodes of delusions, there is no real LOC no seizure activity, she hyperventilates after becoming agitated, seems to be related to outburts, her daughter has witnessed these events after these episodes she becomes very tired and needs sleep, daughter does not think these are seizures, just episodes after she has delusions and is agitated. daughter does not want the patient to go on anti-psychotics and does not want her to go to inpatient [facility]. would want to talk to case management about possible higher level of care signed out pending CM MDM - Weakness MDM Narrative Medical decision making narrative: 80 yo female with hx of UTI - dx on 12/29 comes in again with weakness and possible syncope vs seizure - her UA grew out Staph lugdensis S to tetracycline and bactrim - unsure if this was syncopal vs seizure - labs, CT head/cspine, UA, CXR, cover with IV doxycycline for UA - dispo per results and findings. Lab Data Result diagrams: 01/03/21 10:31 01/03/21 10:31 Labs: Lab Results 01/03/21 01/03/21 01/03/21 Range/Units 09:56 10:31 10:31 WBC 6.2 (4.8-10.8) X10*3/uL RBC 4.29 (4.20-5.50) X10*6/uL Hgb 13.5 (12.0-16.0) g/dl Hct 40.6 (37-47) % MCV 94.6 (80-98) fL MCH 31.5 (27.0-33.0) pg MCHC 33.3 (31.0-35.0) g/dl RDW 12.8 (11.0-16.0) % Plt Count 212 (160-400) X10*3/uL MPV 10.0 (9.4-12.3) fL Immature Gran % (Auto) 0.3 (0.0-0.4) % Neut % (Auto) 54.6 (45-73) % Lymph % (Auto) 28.0 (20-40) % [place] % (Auto) 10.5 (2-11) % Eos % (Auto) 5.5 H (0-4) % Baso % (Auto) 1.1 (0-2) % Lymph # (Auto) 1.7 (1.2-4.9) X10*3/uL [place] # (Auto) 0.7 (0.1-1.2) X10*3/uL Eos # (Auto) 0.3 (0.0-0.4) X10*3/uL Baso # (Auto) 0.1 (0.0-0.2) X10*3/uL Abs Immat Gran (auto) 0.02 (0.00-0.03) X10*3/uL Absolute Neuts (auto) 3.4 (2.0-8.3) X10*3/uL Absolute Nucleated RBC 0.000 (0.0-0.012) X10*3/uL Nucleated RBC % (auto) 0.0 (0.0-0.2) /100WBC PT (10.8-13.0) SEC INR (0.9-1.1) APTT (24.1-38.0) SEC Sodium 140 (135-145) mmol/L Potassium 4.4 (3.3-5.1) mmol/L Chloride 105 (96-108) mmol/L Carbon Dioxide 27 (22-29) mmol/L Anion Gap 12 (12-20) BUN 17 H (9-16) mg/dL Creatinine 0.95 (0.5-1.4) mg/dL Estim Creat Clear Calc 52.8 Estimated GFR 57 POC Glucose 84 (60-115) mg/dL Random Glucose 93 (60-115) mg/dL Calcium 8.9 D (8.4-10.2) mg/dL Magnesium (1.6-2.6) mg/dL Total Bilirubin (0.0-1.0) mg/dL Direct Bilirubin (0.0-0.5) mg/dL AST (5-31) U/L ALT (0-31) U/L Alkaline Phosphatase (39-117) U/L Troponin I High Sens (<3.5-17.0) ng/L Total Protein (6.5-8.0) g/dL Albumin (3.5-5.0) g/dL Lipase (8-78) U/L Urine Color Urine Appearance Urine pH (5.0-8.0) Ur Specific [place] (1.005-1.025) Urine Protein (NEG-TRACE) MG/DL Urine Glucose (UA) (NEG) MG/DL Urine Ketones (NEG) MG/DL Urine Blood (NEG) Urine Nitrite (NEG) Ur Leukocyte Esterase (NEG) COVID-19 (JOSELYN) (Negative) COVID-19 Clin Com 01/03/21 01/03/21 01/03/21 Range/Units 10:31 10:31 10:31 WBC (4.8-10.8) X10*3/uL RBC (4.20-5.50) X10*6/uL Hgb (12.0-16.0) g/dl Hct (37-47) % MCV (80-98) fL MCH (27.0-33.0) pg MCHC (31.0-35.0) g/dl RDW (11.0-16.0) % Plt Count (160-400) X10*3/uL MPV (9.4-12.3) fL Immature Gran % (Auto) (0.0-0.4) % Neut % (Auto) (45-73) % Lymph % (Auto) (20-40) % [place] % (Auto) (2-11) % Eos % (Auto) (0-4) % Baso % (Auto) (0-2) % Lymph # (Auto) (1.2-4.9) X10*3/uL [place] # (Auto) (0.1-1.2) X10*3/uL Eos # (Auto) (0.0-0.4) X10*3/uL Baso # (Auto) (0.0-0.2) X10*3/uL Abs Immat Gran (auto) (0.00-0.03) X10*3/uL Absolute Neuts (auto) (2.0-8.3) X10*3/uL Absolute Nucleated RBC (0.0-0.012) X10*3/uL Nucleated RBC % (auto) (0.0-0.2) /100WBC PT 12.2 (10.8-13.0) SEC INR 1.0 (0.9-1.1) APTT 27.8 (24.1-38.0) SEC Sodium (135-145) mmol/L Potassium (3.3-5.1) mmol/L Chloride (96-108) mmol/L Carbon Dioxide (22-29) mmol/L Anion Gap (12-20) BUN (9-16) mg/dL Creatinine (0.5-1.4) mg/dL Estim Creat Clear Calc Estimated GFR POC Glucose (60-115) mg/dL Random Glucose (60-115) mg/dL Calcium 9.1 (8.4-10.2) mg/dL Magnesium 2.4 (1.6-2.6) mg/dL Total Bilirubin 1.5 H (0.0-1.0) mg/dL Direct Bilirubin 0.5 (0.0-0.5) mg/dL AST 26 (5-31) U/L ALT 19 (0-31) U/L Alkaline Phosphatase 68 (39-117) U/L Troponin I High Sens (<3.5-17.0) ng/L Total Protein 6.7 (6.5-8.0) g/dL Albumin 3.9 (3.5-5.0) g/dL Lipase (8-78) U/L Urine Color Urine Appearance Urine pH (5.0-8.0) Ur Specific [place] (1.005-1.025) Urine Protein (NEG-TRACE) MG/DL Urine Glucose (UA) (NEG) MG/DL Urine Ketones (NEG) MG/DL Urine Blood (NEG) Urine Nitrite (NEG) Ur Leukocyte Esterase (NEG) COVID-19 (JOSELYN) Negative (Negative) COVID-19 Clin Com See Note 01/03/21 01/03/21 01/03/21 Range/Units 10:31 10:31 13:32 WBC (4.8-10.8) X10*3/uL RBC (4.20-5.50) X10*6/uL Hgb (12.0-16.0) g/dl Hct (37-47) % MCV (80-98) fL MCH (27.0-33.0) pg MCHC (31.0-35.0) g/dl RDW (11.0-16.0) % Plt Count (160-400) X10*3/uL MPV (9.4-12.3) fL Immature Gran % (Auto) (0.0-0.4) % Neut % (Auto) (45-73) % Lymph % (Auto) (20-40) % [place] % (Auto) (2-11) % Eos % (Auto) (0-4) % Baso % (Auto) (0-2) % Lymph # (Auto) (1.2-4.9) X10*3/uL [place] # (Auto) (0.1-1.2) X10*3/uL Eos # (Auto) (0.0-0.4) X10*3/uL Baso # (Auto) (0.0-0.2) X10*3/uL Abs Immat Gran (auto) (0.00-0.03) X10*3/uL Absolute Neuts (auto) (2.0-8.3) X10*3/uL Absolute Nucleated RBC (0.0-0.012) X10*3/uL Nucleated RBC % (auto) (0.0-0.2) /100WBC PT (10.8-13.0) SEC INR (0.9-1.1) APTT (24.1-38.0) SEC Sodium (135-145) mmol/L Potassium (3.3-5.1) mmol/L Chloride (96-108) mmol/L Carbon Dioxide (22-29) mmol/L Anion Gap (12-20) BUN (9-16) mg/dL Creatinine (0.5-1.4) mg/dL Estim Creat Clear Calc Estimated GFR POC Glucose (60-115) mg/dL Random Glucose (60-115) mg/dL Calcium (8.4-10.2) mg/dL Magnesium (1.6-2.6) mg/dL Total Bilirubin (0.0-1.0) mg/dL Direct Bilirubin (0.0-0.5) mg/dL AST (5-31) U/L ALT (0-31) U/L Alkaline Phosphatase (39-117) U/L Troponin I High Sens < 3.5 (<3.5-17.0) ng/L Total Protein (6.5-8.0) g/dL Albumin (3.5-5.0) g/dL Lipase 36 (8-78) U/L Urine Color YELLOW Urine Appearance CLEAR Urine pH 6.0 (5.0-8.0) Ur Specific [place] 1.020 (1.005-1.025) Urine Protein NEG (NEG-TRACE) MG/DL Urine Glucose (UA) NEG (NEG) MG/DL Urine Ketones NEG (NEG) MG/DL Urine Blood NEG (NEG) Urine Nitrite NEG (NEG) Ur Leukocyte Esterase NEG (NEG) COVID-19 (JOSELYN) (Negative) COVID-19 Clin Com 01/03/21 Range/Units 13:35 WBC (4.8-10.8) X10*3/uL RBC (4.20-5.50) X10*6/uL Hgb (12.0-16.0) g/dl Hct (37-47) % MCV (80-98) fL MCH (27.0-33.0) pg MCHC (31.0-35.0) g/dl RDW (11.0-16.0) % Plt Count (160-400) X10*3/uL MPV (9.4-12.3) fL Immature Gran % (Auto) (0.0-0.4) % Neut % (Auto) (45-73) % Lymph % (Auto) (20-40) % [place] % (Auto) (2-11) % Eos % (Auto) (0-4) % Baso % (Auto) (0-2) % Lymph # (Auto) (1.2-4.9) X10*3/uL [place] # (Auto) (0.1-1.2) X10*3/uL Eos # (Auto) (0.0-0.4) X10*3/uL Baso # (Auto) (0.0-0.2) X10*3/uL Abs Immat Gran (auto) (0.00-0.03) X10*3/uL Absolute Neuts (auto) (2.0-8.3) X10*3/uL Absolute Nucleated RBC (0.0-0.012) X10*3/uL Nucleated RBC % (auto) (0.0-0.2) /100WBC PT (10.8-13.0) SEC INR (0.9-1.1) APTT (24.1-38.0) SEC Sodium (135-145) mmol/L Potassium (3.3-5.1) mmol/L Chloride (96-108) mmol/L Carbon Dioxide (22-29) mmol/L Anion Gap (12-20) BUN (9-16) mg/dL Creatinine (0.5-1.4) mg/dL Estim Creat Clear Calc Estimated GFR POC Glucose (60-115) mg/dL Random Glucose (60-115) mg/dL Calcium (8.4-10.2) mg/dL Magnesium (1.6-2.6) mg/dL Total Bilirubin (0.0-1.0) mg/dL Direct Bilirubin (0.0-0.5) mg/dL AST (5-31) U/L ALT (0-31) U/L Alkaline Phosphatase (39-117) U/L Troponin I High Sens < 3.5 (<3.5-17.0) ng/L Total Protein (6.5-8.0) g/dL Albumin (3.5-5.0) g/dL Lipase (8-78) U/L Urine Color Urine Appearance Urine pH (5.0-8.0) Ur Specific [place] (1.005-1.025) Urine Protein (NEG-TRACE) MG/DL Urine Glucose (UA) (NEG) MG/DL Urine Ketones (NEG) MG/DL Urine Blood (NEG) Urine Nitrite (NEG) Ur Leukocyte Esterase (NEG) COVID-19 (JOSELYN) (Negative) COVID-19 Clin Com ECG Data Attestation: I personally reviewed and interpreted this ECG as follows: ECG interpretation date: 01/03/21 ECG interpretation time: 10:25 Interpretation: Rate: 55 Rhythm: sinus bradycardia [place]: left Normal P waves. Normal [place]. Normal QRS complex. ST T wave : normal no CELE qTC: normal prior studies: no acute ischemia The study has been interpreted contemporaneously by me. . Discharge Plan Discharge Clinical Impression: Dementia Prescriptions: No Action levothyroxine 88 mcg Tablet 88 mcg PO DAILY RF: 0 simvastatin 20 mg Tablet 20 mg PO DAILY RF: 0 fluoxetine 10 mg Capsule 10 mg PO DAILY RF: 0 memantine 10 mg Tablet 10 mg PO BID RF: 0 cephalexin 500 mg capsule 500 mg PO BID 10 Days Qty: 20 RF: 0
[2021-01-03 10:40] LABS: MANUAL DIFF FLAG NO
[2021-01-03 10:44] LABS: Basophils Absolute Auto 0.1 X10*3/uL (0.0-0.2); Basophils Percent Auto 1.1 % (0-2); Eosinophils Absolute Auto 0.3 X10*3/uL (0.0-0.4); Eosinophils Percent Auto 5.5 % (0-4); Hematocrit 40.6 % (37-47); Hemoglobin 13.5 g/dl (12.0-16.0); Imm Gran Abs Auto 0.02 X10*3/uL (0.00-0.03); Imm Gran Pct Auto 0.3 % (0.0-0.4); Lymphocytes Absolute Auto 1.7 X10*3/uL (1.2-4.9); Mean Corpuscular HGB Conc 33.3 g/dl (31.0-35.0); Mean Corpuscular Hemoglobin 31.5 pg (27.0-33.0); Mean Corpuscular Volume 94.6 fL (80-98); Monocytes Absolute Auto 0.7 X10*3/uL (0.1-1.2); Monocytes Percent Auto 10.5 % (2-11); Neutrophils Absolute Auto 3.4 X10*3/uL (2.0-8.3); Neutrophils Percent Auto 54.6 % (45-73); Platelet Count 212 X10*3/uL (160-400); Red Blood Count 4.29 X10*6/uL (4.20-5.50); Red Cell Distribution Width 12.8 % (11.0-16.0); White Blood Count 6.2 X10*3/uL (4.8-10.8)
[2021-01-03 10:49] LABS: Prothrombin Time 12.2 SEC (10.8-13.0)
[2021-01-03] MEDS: Doxycycline Hyclate 100 MG in 0.9 % Sodium Chloride 250 ML 166.67 MG IV (10:49)
[2021-01-03 10:52] LABS: Partial Thromboplastin Time 27.8 SEC (24.1-38.0)
[2021-01-03] MEDS: LORazepam 2 MG/ML VIAL 1 MG IVPUSH (11:08)
[2021-01-03] MEDS: 0.9 % Sodium Chloride 500 ML IV (11:10)
[2021-01-03 11:17] LABS: Anion Gap 12 (12-20); Blood Urea Nitrogen 17 mg/dL (9-16); Calcium 8.9 mg/dL (8.4-10.2); Carbon Dioxide 27 mmol/L (22-29); Chloride 105 mmol/L (96-108); Creatinine Clr Calc Pharmacy 52.8; Estimated Glomerular Filt Rate 57; Glucose Random 93 mg/dL (60-115); Potassium 4.4 mmol/L (3.3-5.1); Sodium 140 mmol/L (135-145)
[2021-01-03 11:20] LABS: Alanine Aminotransferase 19 U/L (0-31); Albumin Level 3.9 g/dL (3.5-5.0); Alkaline Phosphatase 68 U/L (39-117); Aspartate Amino Transferase 26 U/L (5-31); Bilirubin Direct 0.5 mg/dL (0.0-0.5); Bilirubin Total 1.5 mg/dL (0.0-1.0); Calcium 9.1 mg/dL (8.4-10.2); Lipase 36 U/L (8-78); Magnesium 2.4 mg/dL (1.6-2.6); Total Protein 6.7 g/dL (6.5-8.0)
[2021-01-03 11:22] LABS: COVID-19 Test Negative (Negative); Troponin-I High Sensitivity < 3.5 ng/L (<3.5-17.0)
[2021-01-03 13:50] LABS: Glucose Urine UA NEG (NEG); Leukocyte Esterase Urine NEG (NEG); Nitrite Urine NEG (NEG); Urine Blood NEG (NEG); Urine Ketones NEG (NEG); Urine Protein NEG (NEG-TRACE)
[2021-01-03 13:51] LABS: Appearance Urine CLEAR; Color Urine YELLOW
[2021-01-03 14:16] LABS: Troponin-I High Sensitivity < 3.5 ng/L (<3.5-17.0)
--- NOTE | 2021-01-03 15:36 | PC.NURSE ---
pt ambualted with walker with minimal assistance needed
--- NOTE | 2021-01-03 17:45 | PC.NURSE ---
PLAN FOR PT TO SEE PHYSICAL THERAPY IN AM.
--- NOTE | 2021-01-03 18:44 | MHC.CM.ED ---
CM met with patient. Pt with diagnosis of severe dementia. Unable to carry on meaningful conversation. Pleasant, but very confused. Pt informed she would stay here overnight and have a PT evaluation in the morning. Pt informed that , Ty went home for the evening. CM met with Ty, and HCP ([phone]). Pt has cochlear implant and hearing aide. No difficulty with conversation. feels that pt's dementia is much worse and he is having trouble caring for her. States she is weak and has difficulty walking short distances. Had mechanical fall today and he had great difficulty getting her up. Pt and live at [facility] in independent living. feels patient needs a higher level of care. Questioning having her in assisted living. This teletypewriter installer concerned that pt may have more needs than assisted living care provide. Spoke with pt daughter Serena, ([phone]). Updated with plan of care. Serena has spoken to [facility] regarding possibility of assisted living. Explained to both and daughter that CM hope is that PT recommends STR. Then they can use the STR as a bridge to a more permanent plan for care for this pt. relieved and expresses thanks. CM did explain that there is no guarantee that PT will recommend STR, but we will deal with that in the morning. To call and daughter Serena with PT recommendations. No referrals placed at this time. Cm to follow for d/c needs.
--- NOTE | 2021-01-03 19:31 | PC.NURSE ---
Pt found resting in bed, calm and cooperative at this time. Per previous RN, pt awaiting PT eval in the morning. Pt denies pain/discomfort, VSS. Continue to monitor.
--- NOTE | 2021-01-04 00:52 | PC.NURSE ---
Pt wakes in bed, attempting to get out of bed, states I need to go home, why am I in [place]? Pt redirected to time/place, assisted back into POC, provided with water per request. Continue to monitor.
[2021-01-04 00:55] VITALS: RESP 20
[2021-01-04] MEDS: QUEtiapine Fumarate 25 MG TABLET PO (01:31)
--- NOTE | 2021-01-04 01:33 | PC.NURSE ---
Pt wakes in bed, asking where her mom and dad are. Pt states they wouldn't leave without saying goodbye. Pt trying to get OOB, refusing to stay in bed. Pt ambulating with this RN in the halls, looking for her mom and dad. Pt assisted back into bed, medicated with Seroquel per MAR due to continuously trying to get out of bed. Continue to monitor.
[2021-01-04 01:49] VITALS: RESP 16
[2021-01-04 03:13] VITALS: BP 108/48; PULSE 76; RESP 20; O2SAT 98
--- NOTE | 2021-01-04 03:15 | PC.NURSE ---
Pt ambulating in halls with nail technician teacher and sitter while using the walker with a steady gait. Upon return to room, this RN was called by nail technician teacher Antonella. Pt found kneeling on the floor with arms and upper body leaning on the bed. Per nail technician teacher, pt was turning to sit on the bed when she stopped suddenly and kneeled on the floor. Per nail technician teacher, pt did not fall, pts buttocks did not touch the ground, pt did not hit head, pt purposely kneeled on the floor. Pt was assisted up by this RN and nail technician teacher, pt assisted back into bed into POC. VSS. professor of geology informed of incident. Continue to monitor.
[2021-01-04 05:42] VITALS: RESP 20
[2021-01-04 05:50] VITALS: RESP 16
--- NOTE | 2021-01-04 07:19 | PC.NURSE ---
report taken from carson rn pt appears to be resting in bed, easily arousable to voice. no events overnight reported. breakfast at bedside. pt in close view of nurses station d/t reported wandering. rr even/ unlabored. wctm for dc needs.
--- NOTE | 2021-01-04 07:51 | PC.NURSE ---
physical therapy ambulating in hallway w pt using walker. appears to have steady gait w stand by assist.
--- NOTE | 2021-01-04 10:29 | PC.NURSE ---
pt continues to rest in bed, offers no new complaints. awaiting lunch tray. wctm.
--- NOTE | 2021-01-04 12:54 | MHC.CM.ED ---
Patient remains in ER. Physical therapy eval completed. Short term rehab is recommended. Spoke with patient's daughter, Serena. Serena is requesting referral to [facility]. Referral made via [email or web address]. [facility] is not contracted with insurance. However, they are going to attempt to obtain insurance auth because patient is already their resident. If not, patient has free days to use. Patient's daughter, Serena is aware. Continue to monitor for d/c needs.
== END 2021-01-04 16:03 | disposition skilled nursing facility (03) ==
PROVIDERS: Emergency Provider Emergency Medicine; PCP Internal Medicine
DX: R53.1 Weakness (principal); F03.90 Unspecified dementia, unspecified severity, without behavioral disturbance, psychotic disturbance, mood disturbance, and anxiety; Z87.440 Personal history of urinary (tract) infections; Z20.822 Contact with and (suspected) exposure to COVID-19; R00.1 Bradycardia, unspecified; Z85.3 Personal history of malignant neoplasm of breast
CPT/HCPCS: 36415; 51701; 70450; 71045; 72125; 80048; 80076; 81003; 82310; 82947; 83690; 83735; 84484; 85025; 85610; 85730; 87040; 87635; 96361; 96365; 96374; 97162; 99285; J2060

== ENCOUNTER 2021-01-27 20:17 | Emergency (ER) | payer MEDICARE, SELFPAY ==
[2021-01-27 20:31] VITALS: BP 116/49; PULSE 63; RESP 16; TEMP 36.8; O2SAT 92; BMI 25.0
[2021-01-27 21:00] LABS: Glucose Urine UA NEG (NEG); Leukocyte Esterase Urine NEG (NEG); Nitrite Urine POS (NEG); Specific Gravity - Urine 1.025 (1.005-1.025); UACC Culture Trigger YES; Urine Blood NEG (NEG); Urine Ketones NEG (NEG); Urine Protein NEG (NEG-TRACE)
[2021-01-27 21:01] LABS: Appearance Urine CLEAR; Color Urine YELLOW
[2021-01-27 21:17] LABS: Bacteria Urine TRACE /LPF; RBC Urine 0-2 /HPF (0); Squamous Epithelial Cell Urine TRACE /LPF
[2021-01-27 21:18] LABS: Mucus Urine TRACE /LPF
--- NOTE | 2021-01-27 21:39 | ED.GENADULT ---
HPI - General Adult General Chief complaint: General Medical Stated complaint: weakness fall Time Seen by Provider: 01/27/21 21:39 Source: patient and family () Mode of arrival: EMS History of Present Illness HPI narrative: This is a 80-year-old female with known dementia as well as thyroid condition who is brought in by EMS after states she got up from the couch proceeded to sit on the floor and then lie on her side. He states that when he checked on her she would not respond to him although appeared to be breathing, he became scared and pulled the emergency cord. He states they are currently living together in an independent living center. He does endorse that patient was recently seen here for urinary tract infection he is concerned that she may have the same. Although he has recently began to explore other facilities that would benefit her as he is becoming overwhelmed with her care. Related Data Home Medications Medication Instructions Recorded Confirmed fluoxetine 10 mg PO DAILY 12/29/20 01/03/21 levothyroxine 88 mcg PO DAILY 12/29/20 01/03/21 simvastatin 20 mg PO DAILY 12/29/20 01/03/21 donepezil 1 tab PO DAILY 01/03/21 01/03/21 Previous Rx's Medication Instructions Recorded cephalexin 500 mg PO BID 10 Days #20 cap 12/30/20 Allergies Allergy/AdvReac Type Severity Reaction Status Date / Time No Known Allergies Allergy Verified 12/29/20 23:39 [No Known Allergies*] Review of Systems Review of Systems: Pertinent positives and negatives as stated in HPI 10 point review of systems is otherwise negative. [facility] Past Medical History Source: nursing notes reviewed Medical History Breast CA Dementia Hypercholesteremia Hypothyroid Social History Social History Alcohol intake: never Smoking Status: Never smoker Advance Directives: Yes Advance Directives on File: Yes Advance Directives Date on File: 01/04/21 Physical Exam Vital Signs: Vital Signs: Last Vital Signs Temp 97.7 F 01/28/21 04:00 Pulse 57 01/28/21 04:00 Resp 18 01/28/21 04:00 BP 159/59 H 01/28/21 04:00 Pulse Ox 98 01/28/21 04:00 Body Mass Index 25.0 VITAL SIGNS: Reviewed. GENERAL: Well developed, well nourished, in no acute distress. HEAD: Normocephalic/atraumatic EYES: PERRLA, EOMI NOSE: Nares patent bilateral OROPHARYNX: no oral lesions noted, posterior pharynx clear, moist mucosa NECK: Supple, no adenopathy LUNGS: Normal breath sounds. No adventitious sounds or accessory muscle use. SpO2<92> CARDIOVASCULAR: Regular rate and rhythm without noted murmurs ABDOMEN: Soft, non-tender, non-distended with bowel sounds. NEUROLOGIC: Alert and oriented x 1. Strength and sensation to light touch were grossly intact x 4. Course Course Course Narrative: This is a 80-year-old female with history and clinical presentation consistent with likely progression of dementia as well as underlying infection which was further cooperated by a positive urinalysis. On review of microbiology results from previous UTI diagnosis the microorganism was resistant to the antibiotic choice. Patient will be presumptively treated with an antibiotic identified as being sensitive based off of prior microbiology results. Will obtain basic laboratory results and then medically clear for further assessment by case management for placement. Review of all investigations is negative for any acute findings other than a noted decrease in H/H. THA is deferred at this time due to the invasive nature and patient's baseline mental status. Review of all proxy parameters are negative for evidence of tachycardia, hypotension and has been denies any concerns regarding the color of her bowel movements. Patient is otherwise cleared for further evaluation and assistance by case management, but should have repeat CBC at new facility. Reevaluation(s) Reevaluation #1: Patient placed in physician observation because the patient needed more time for case management assistance/evaluation and treatment for UTI. At the time observation was started the patient's vital signs were stable, patient is alert and baseline dementia, neuro: Nonfocal, CV RRR, lungs clear. Time: 00:15 Medical Decision Making Lab Data Result diagrams: 01/27/21 22:02 01/27/21 22:02 Labs: Lab Results 01/27/21 01/27/21 01/27/21 Range/Units 20:55 22:02 22:02 WBC 7.4 (4.8-10.8) X10*3/uL RBC 3.62 L (4.20-5.50) X10*6/uL Hgb 11.5 L (12.0-16.0) g/dl Hct 34.2 L (37-47) % MCV 94.5 (80-98) fL MCH 31.8 (27.0-33.0) pg MCHC 33.6 (31.0-35.0) g/dl RDW 13.2 (11.0-16.0) % Plt Count 219 (160-400) X10*3/uL MPV 10.1 (9.4-12.3) fL Immature Gran % (Auto) 0.3 (0.0-0.4) % Neut % (Auto) 61.0 (45-73) % Lymph % (Auto) 23.6 (20-40) % [place] % (Auto) 11.2 H (2-11) % Eos % (Auto) 3.2 (0-4) % Baso % (Auto) 0.7 (0-2) % Lymph # (Auto) 1.8 (1.2-4.9) X10*3/uL [place] # (Auto) 0.8 (0.1-1.2) X10*3/uL Eos # (Auto) 0.2 (0.0-0.4) X10*3/uL Baso # (Auto) 0.1 (0.0-0.2) X10*3/uL Abs Immat Gran (auto) 0.02 (0.00-0.03) X10*3/uL Absolute Neuts (auto) 4.5 (2.0-8.3) X10*3/uL Absolute Nucleated RBC 0.000 (0.0-0.012) X10*3/uL Nucleated RBC % (auto) 0.0 (0.0-0.2) /100WBC Sodium 144 (135-145) mmol/L Potassium 4.2 (3.3-5.1) mmol/L Chloride 110 H (96-108) mmol/L Carbon Dioxide 23 (22-29) mmol/L Anion Gap 15 (12-20) BUN 25 H (9-16) mg/dL Creatinine 0.92 (0.5-1.4) mg/dL Estim Creat Clear Calc 56.3 Estimated GFR 59 Random Glucose 89 (60-115) mg/dL Calcium 8.4 D (8.4-10.2) mg/dL Total Bilirubin 0.8 (0.0-1.0) mg/dL AST 20 (5-31) U/L ALT 15 (0-31) U/L Alkaline Phosphatase 61 (39-117) U/L Total Protein 5.8 L (6.5-8.0) g/dL Albumin 3.3 L (3.5-5.0) g/dL Urine Color YELLOW Urine Appearance CLEAR Urine pH 6.0 (5.0-8.0) Ur Specific [place] 1.025 (1.005-1.025) Urine Protein NEG (NEG-TRACE) MG/DL Urine Glucose (UA) NEG (NEG) MG/DL Urine Ketones NEG (NEG) MG/DL Urine Blood NEG (NEG) Urine Nitrite POS H (NEG) Ur Leukocyte Esterase NEG (NEG) Urine RBC 0-2 (0) /HPF Urine WBC 10-14 H (0-4) /HPF Ur Squamous Epith Cells TRACE /LPF Urine Bacteria TRACE /LPF Urine Mucus TRACE /LPF COVID-19 ([facility]) (Negative) COVID-19 Clin Com 01/27/21 Range/Units 22:02 WBC (4.8-10.8) X10*3/uL RBC (4.20-5.50) X10*6/uL Hgb (12.0-16.0) g/dl Hct (37-47) % MCV (80-98) fL MCH (27.0-33.0) pg MCHC (31.0-35.0) g/dl RDW (11.0-16.0) % Plt Count (160-400) X10*3/uL MPV (9.4-12.3) fL Immature Gran % (Auto) (0.0-0.4) % Neut % (Auto) (45-73) % Lymph % (Auto) (20-40) % [place] % (Auto) (2-11) % Eos % (Auto) (0-4) % Baso % (Auto) (0-2) % Lymph # (Auto) (1.2-4.9) X10*3/uL [place] # (Auto) (0.1-1.2) X10*3/uL Eos # (Auto) (0.0-0.4) X10*3/uL Baso # (Auto) (0.0-0.2) X10*3/uL Abs Immat Gran (auto) (0.00-0.03) X10*3/uL Absolute Neuts (auto) (2.0-8.3) X10*3/uL Absolute Nucleated RBC (0.0-0.012) X10*3/uL Nucleated RBC % (auto) (0.0-0.2) /100WBC Sodium (135-145) mmol/L Potassium (3.3-5.1) mmol/L Chloride (96-108) mmol/L Carbon Dioxide (22-29) mmol/L Anion Gap (12-20) BUN (9-16) mg/dL Creatinine (0.5-1.4) mg/dL Estim Creat Clear Calc Estimated GFR Random Glucose (60-115) mg/dL Calcium (8.4-10.2) mg/dL Total Bilirubin (0.0-1.0) mg/dL AST (5-31) U/L ALT (0-31) U/L Alkaline Phosphatase (39-117) U/L Total Protein (6.5-8.0) g/dL Albumin (3.5-5.0) g/dL Urine Color Urine Appearance Urine pH (5.0-8.0) Ur Specific [place] (1.005-1.025) Urine Protein (NEG-TRACE) MG/DL Urine Glucose (UA) (NEG) MG/DL Urine Ketones (NEG) MG/DL Urine Blood (NEG) Urine Nitrite (NEG) Ur Leukocyte Esterase (NEG) Urine RBC (0) /HPF Urine WBC (0-4) /HPF Ur Squamous Epith Cells /LPF Urine Bacteria /LPF Urine Mucus /LPF COVID-19 ([facility]) Negative (Negative) COVID-19 Clin Com See Note ECG Data Attestation: I personally reviewed and interpreted this ECG as follows: Prior ECG tracings: available for review (01/03/2021 no acute changes on comparison.) Interpretation: Sinus bradycardia, HR-58, no evidence of acute ischemia, WI/QRS/QTC are within normal limits. Discharge Plan Discharge Prescriptions: No Action levothyroxine 88 mcg Tablet 88 mcg PO DAILY RF: 0 simvastatin 20 mg Tablet 20 mg PO DAILY RF: 0 fluoxetine 10 mg Capsule 10 mg PO DAILY RF: 0 cephalexin 500 mg capsule 500 mg PO BID 10 Days Qty: 20 RF: 0 donepezil 10 mg tablet 1 tab PO DAILY RF: 0
--- NOTE | 2021-01-27 21:41 | ECG_ITS ---
Test Reason : WEAKNESS Blood Pressure : / mmHG Vent. Rate : 058 BPM Atrial Rate : 058 BPM P-R Int : 132 ms QRS Dur : 080 ms QT Int : 420 ms P-R-T Axes : 026 -34 002 degrees QTc Int : 412 ms Sinus bradycardia Left axis deviation Abnormal ECG When compared with ECG of 03-JAN-2021 10:13, No significant change was found Referred By: Kala Joe Electronically Signed By:FOZIA ALMONTE
[2021-01-27] MEDS: 0.9 % Sodium Chloride 1,000 ML 999 ML IV (22:07)
[2021-01-27 22:09] LABS: MANUAL DIFF FLAG NO
[2021-01-27 22:17] LABS: Basophils Absolute Auto 0.1 X10*3/uL (0.0-0.2); Basophils Percent Auto 0.7 % (0-2); Eosinophils Absolute Auto 0.2 X10*3/uL (0.0-0.4); Eosinophils Percent Auto 3.2 % (0-4); Hematocrit 34.2 % (37-47); Hemoglobin 11.5 g/dl (12.0-16.0); Imm Gran Abs Auto 0.02 X10*3/uL (0.00-0.03); Imm Gran Pct Auto 0.3 % (0.0-0.4); Lymphocytes Absolute Auto 1.8 X10*3/uL (1.2-4.9); Lymphocytes Percent Auto 23.6 % (20-40); Mean Corpuscular HGB Conc 33.6 g/dl (31.0-35.0); Mean Corpuscular Hemoglobin 31.8 pg (27.0-33.0); Mean Corpuscular Volume 94.5 fL (80-98); Mean Platelet Volume 10.1 fL (9.4-12.3); Monocytes Absolute Auto 0.8 X10*3/uL (0.1-1.2); Monocytes Percent Auto 11.2 % (2-11); Neutrophils Absolute Auto 4.5 X10*3/uL (2.0-8.3); Platelet Count 219 X10*3/uL (160-400); Red Blood Count 3.62 X10*6/uL (4.20-5.50); Red Cell Distribution Width 13.2 % (11.0-16.0); White Blood Count 7.4 X10*3/uL (4.8-10.8)
[2021-01-27 22:33] LABS: COVID-19 Test Negative (Negative)
[2021-01-27 22:41] LABS: Alanine Aminotransferase 15 U/L (0-31); Albumin Level 3.3 g/dL (3.5-5.0); Alkaline Phosphatase 61 U/L (39-117); Anion Gap 15 (12-20); Aspartate Amino Transferase 20 U/L (5-31); Bilirubin Total 0.8 mg/dL (0.0-1.0); Blood Urea Nitrogen 25 mg/dL (9-16); Calcium 8.4 mg/dL (8.4-10.2); Carbon Dioxide 23 mmol/L (22-29); Chloride 110 mmol/L (96-108); Creatinine Clr Calc Pharmacy 56.3; Estimated Glomerular Filt Rate 59; Glucose Random 89 mg/dL (60-115); Potassium 4.2 mmol/L (3.3-5.1); Sodium 144 mmol/L (135-145); Total Protein 5.8 g/dL (6.5-8.0)
[2021-01-27 23:30] VITALS: BP 119/65; PULSE 65; RESP 18; TEMP 36.6; O2SAT 98
[2021-01-28 01:45] VITALS: BP 122/69; PULSE 62; RESP 18; TEMP 36.5; O2SAT 98
[2021-01-28 04:00] VITALS: BP 159/59; PULSE 57; RESP 18; TEMP 36.5; O2SAT 98
[2021-01-28 06:00] VITALS: BP 148/60; PULSE 57; RESP 18; TEMP 36.8; O2SAT 98
--- NOTE | 2021-01-28 06:50 | PC.NURSE ---
RECEIVED REPORT FROM MARCELINO MAY [PT SET UP WITH HER BREAKFAST FRANCISCA, REPORTS NO COMPLAINT AT THIS TIME
[2021-01-28 09:04] VITALS: BP 142/61; PULSE 64; RESP 18; TEMP 36.7; O2SAT 97
[2021-01-28] MEDS: FLUoxetine HCl 10 MG CAPSULE PO (09:05)
[2021-01-28] MEDS: Levothyroxine Sodium 88 MCG TABLET PO (09:06)
[2021-01-28] MEDS: Atorvastatin Calcium 10 MG TABLET PO (09:06)
--- NOTE | 2021-01-28 09:08 | PC.NURSE ---
pt keeps wandering around the ed, re-directable back to here room
--- NOTE | 2021-01-28 09:31 | MHC.CM.ED ---
pt's is at bedside, pt and live in [facility]. she ambulates s assistance and they have people from [facility] checking on them daily. the therefore is declining vna referral. is going to take patient home today under his care c rx for abx from [facility]. PA and rn are aware of dc plan. cm to cont. to follow.
== END 2021-01-28 09:37 | disposition home or self-care (01) ==
PROVIDERS: Emergency Provider Student in an Organized Health Care Education/Training Program
DX: F03.90 Unspecified dementia, unspecified severity, without behavioral disturbance, psychotic disturbance, mood disturbance, and anxiety (principal); N39.0 Urinary tract infection, site not specified; R53.1 Weakness; Z20.822 Contact with and (suspected) exposure to COVID-19; Z79.899 Other long term (current) drug therapy
CPT/HCPCS: 36415; 80053; 81001; 81003; 85025; 87086; 87088; 87147; 87186; 87635; 93005; 96361; 96365; 99284

== ENCOUNTER 2021-06-10 12:38 | Emergency (ER) | payer MEDICARE, SELFPAY ==
[2021-06-10] VITALS (9 sets, daily range): BP systolic 121–134; BP diastolic 54–74; PULSE 58–94; RESP 15–16; TEMP 36.5–36.9; O2SAT 95–98; BMI 22.8
--- NOTE | ~2021-06-10 | CT_ITS ---
EXAMINATION: CT HEAD WITHOUT CONTRAST CLINICAL INFORMATION: Altered mental status COMPARISON: 01/03/2021 TECHNIQUE: Contiguous axial imaging was performed from the skull base to vertex without intravenous administration of contrast. This CT examination was performed using dose optimization techniques as appropriate, variously including the following: *Automated exposure control *Adjustment of mA and/or kV according to patient size (this includes techniques or standardized protocols for targeted exams where dose is matched to indication/reason for exam; i.e. extremities or head) *Use of iterative reconstruction technique DLP: 813 mGy-cm FINDINGS: There is no evidence of acute intracranial hemorrhage or territorial infarction. No abnormal mass effect or midline shift is seen. There is atrophy and white matter ischemic change. Generous ventricles. Sinuses are well aerated CT/CT head/brain wo con IMPRESSION: No acute intracranial pathology. Once again atrophy and white matter ischemic changes are noted
--- NOTE | ~2021-06-10 | XR_ITS ---
EXAMINATION: XR CHEST CLINICAL INFORMATION: Chest pain COMPARISON: 01/03/2021 TECHNIQUE: 2 views of the chest were obtained. FINDINGS: Once again density on the left. This is not resolved. Some increased fullness in the hilar region. An underlying lesion cannot be excluded Mild left basilar opacity may represent an early area of infiltrate. No obvious failure though there is mild congestion XR/XR chest 2V IMPRESSION: Some resolved left upper lung density with fullness of the left hilum. Underlying lesion cannot be excluded There is also ill-defined opacity at the left base which suggests an area of infiltrate. Consider CT to fully evaluate versus close follow-up
--- NOTE | ~2021-06-10 | CT_ITS ---
EXAMINATION: CT CHEST WITHOUT CONTRAST CLINICAL INFORMATION: Abnormal chest radiograph in patient with history of chest pain. Evaluate for pneumonia. COMPARISON: CXR from 06/10/2021 TECHNIQUE: Multidetector volumetric CT imaging of the chest was done. Axial MIP volume rendering provided. Sagittal and coronal reformatted images were obtained. This CT examination was performed using dose optimization techniques as appropriate, variously including the following: *Automated exposure control *Adjustment of mA and/or kV according to patient size (this includes techniques or standardized protocols for targeted exams where dose is matched to indication/reason for exam; i.e. extremities or head) *Use of iterative reconstruction technique DLP: 4.87 for the topogram and 359.11 (mGy-cm) for the chest CT FINDINGS: LUNGS AND PLEURA: Bronchial reza are thickened in both lungs, particularly lower lobes, where there are scattered endobronchial secretions. Small bilateral pleural effusions and atelectasis in dependent aspect of each lower lobe. There are very small linear and nodular calcifications in the lower lobes. 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 There is no focal consolidation in either lower lobe. No evidence of acute pneumonia. No pulmonary edema. Lungs have slightly mosaic attenuation. There is volume loss of the left upper lobe with mild architectural distortion and curvilinear opacity of scarring (which can be seen on prior chest radiographs, such as 10/24/2020). A segment of this opacity in the left upper lobe has a more nodular appearance where it measures 1.5 cm transverse. Although fibrosis is favored, CT imaging follow-up recommended to ensure stability. CARDIOVASCULAR: There is multichamber cardiac enlargement. Small pericardial effusion. Mild atherosclerotic calcification of coronary arteries and thoracic aorta. No aortic aneurysm. Pulmonary arteries are in the normal size range. MEDIASTINUM AND LOWER NECK: No mediastinal mass. Moderate hiatal hernia. The thyroid gland is atrophied. LYMPHATICS: No axillary or internal mammary lymphadenopathy. No pathologic sized mediastinal or hilar lymph nodes are detected on this noncontrast examination. UPPER ABDOMEN: Unremarkable. SKELETAL AND CHEST WALL: No chest wall mass. Dextroscoliosis of degenerated thoracic spine. Also, is multilevel discovertebral degenerative change of the visualized cervical spine. No suspicious bone lesion. CT/CT chest wo con IMPRESSION: * No evidence of acute pneumonia. * The bronchial reza are thickened, particularly in lower lobes, and there are endobronchial secretions. Query if there is any history of asthma or bronchitis. Mild aspiration is a possibility, as well. 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 * Cardiomegaly without pulmonary edema. * Small bilateral pleural effusions. * There is volume loss and chronic opacity in the left upper lobe, which probably represents fibrosis, but a segment of this opacity has a somewhat nodular configuration. For this reason, recommend consideration for noncontrast chest CT follow up in 3 months to ensure stability.
--- NOTE | 2021-06-10 13:23 | ECG_ITS ---
Test Reason : PSYCH Blood Pressure : / mmHG Vent. Rate : 059 BPM Atrial Rate : 059 BPM P-R Int : 158 ms QRS Dur : 082 ms QT Int : 600 ms P-R-T Axes : 004 -30 -08 degrees QTc Int : 594 ms Sinus bradycardia Left axis deviation Low voltage QRS Nonspecific T wave abnormality Abnormal ECG When compared with ECG of 27-JAN-2021 20:56, Nonspecific T wave abnormality now evident in Anterolateral leads QT has lengthened Referred By: Shirley Miller Electronically Signed By:Norm Henderson
--- NOTE | 2021-06-10 13:25 | ED_ITS ---
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 within normal limits no evidence of UTI. Valproic acid was 22.2 which was low. Patient negative for COVID/RSV/flu on 06/10/2021. Patient is currently being followed by case management along with the care team and is awaiting a psychiatric consult today. Otherwise will continue to monitor. <RILEY Gabriel - Last Filed: 06/13/21 08:16>
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
[2021-06-10 14:08] LABS: MANUAL DIFF FLAG NO
[2021-06-10 14:10] LABS: Basophils Percent Auto 0.6 % (0-2); Eosinophils Absolute Auto 0.2 X10*3/uL (0.0-0.4); Eosinophils Percent Auto 3.4 % (0-4); Hematocrit 30.3 % (37-47); Imm Gran Abs Auto 0.03 X10*3/uL (0.00-0.03); Imm Gran Pct Auto 0.4 % (0.0-0.4); Lymphocytes Absolute Auto 1.6 X10*3/uL (1.2-4.9); Lymphocytes Percent Auto 22.6 % (20-40); Mean Corpuscular Hemoglobin 30.5 pg (27.0-33.0); Mean Corpuscular Volume 92.4 fL (80-98); Mean Platelet Volume 9.5 fL (9.4-12.3); Monocytes Absolute Auto 0.9 X10*3/uL (0.1-1.2); Monocytes Percent Auto 12.4 % (2-11); Neutrophils Absolute Auto 4.2 X10*3/uL (2.0-8.3); Neutrophils Percent Auto 60.6 % (45-73); Platelet Count 365 X10*3/uL (160-400); Red Blood Count 3.28 X10*6/uL (4.20-5.50); Red Cell Distribution Width 14.7 % (11.0-16.0)
--- NOTE | 2021-06-10 14:16 | PC.NURSE ---
[facility] [phone]
[2021-06-10 14:32] LABS: Magnesium 2.2 mg/dL (1.6-2.6)
[2021-06-10 14:33] LABS: Alanine Aminotransferase 11 U/L (0-31); Albumin Level 2.9 g/dL (3.5-5.0); Alkaline Phosphatase 59 U/L (39-117); Anion Gap 11 (12-20); Aspartate Amino Transferase 17 U/L (5-31); Bilirubin Direct 0.2 mg/dL (0.0-0.5); Bilirubin Total 0.4 mg/dL (0.0-1.0); Blood Urea Nitrogen 8 mg/dL (9-16); Carbon Dioxide 30 mmol/L (22-29); Chloride 106 mmol/L (96-108); Creatinine Clr Calc Pharmacy 62.1; Estimated Glomerular Filt Rate > 60; Glucose Random 83 mg/dL (60-115); Potassium 3.2 mmol/L (3.3-5.1); Sodium 144 mmol/L (135-145); Total Protein 5.5 g/dL (6.5-8.0)
[2021-06-10 14:38] LABS: Valproate 22.2 mcg/mL (50.0-100.0)
[2021-06-10 14:50] LABS: Influenza A PCR NEGATIVE (Negative); Influenza B PCR NEGATIVE (Negative); Resp Syncy Virus RNA Qual PCR NEGATIVE (Negative); SARS COV2 PCR INHOUSE NEGATIVE (Negative)
[2021-06-10 15:12] LABS: Glucose Urine UA NEG (NEG); Leukocyte Esterase Urine NEG (NEG); Nitrite Urine NEG (NEG); PH 7.5 (5.0-8.0); Urine Blood NEG (NEG); Urine Ketones 5 MG/DL (NEG); Urine Protein NEG (NEG-TRACE)
[2021-06-10 15:13] LABS: Appearance Urine CLEAR; Color Urine YELLOW
[2021-06-10] MEDS: Ketamine HCl 500 MG/5 ML VIAL 120 MG IM (16:00)
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
--- NOTE | 2021-06-10 16:28 | PC.NURSE ---
pt not medicated with lorazepam. Ketamine has made pt sleepy.
--- NOTE | 2021-06-10 16:40 | PC.NURSE ---
pt at CT scan
--- NOTE | 2021-06-10 20:26 | MHC.CARE ---
CARE Team spoke with RN regarding Pt. Pt received IM medication for aggression and is not appropriate to be met with at this time. Pt is from nursing facility and carries a diagnosis of dementia. CARE Team to collaborate with psychiatry and case management tomorrow for plan of care recommendations.
[2021-06-10] MEDS: LORazepam 0.5 MG TABLET 0.25 MG PO (23:54)
--- NOTE | 2021-06-10 23:56 | PC.NURSE ---
PT REFUSED ALL MEDS, W/MULTIPLE ATTEMPTS FROM DIFFERENT RNs, PT HAS HAD MULTIPLE EPISODES OF FECAL INCONTINENCE, AND WHEN STAFF ATTEMPTS TO CLEAN BUT BECOMES PHYSICALLY AGGRESSIVE
--- NOTE | 2021-06-11 08:17 | PC.NURSE ---
pt is a/o x 0, pt states that her nake is luz elena and she did md not know the year, place and the president . aware.
[2021-06-11] MEDS: Levothyroxine Sodium 88 MCG TABLET 44 MCG PO (08:26)
[2021-06-11 08:48] VITALS: BP 136/66; PULSE 71; RESP 16; TEMP 36.2; O2SAT 97
--- NOTE | 2021-06-11 08:51 | PC.NURSE ---
bm x 1 soft/formed. turner care performed and complete bed changed.
--- NOTE | 2021-06-11 09:49 | PC.NURSE ---
pt's is at bedside, states that he spoke to king (chief payroll clerk) last night and is here to follow up with case management for plan of care for his .
[2021-06-11] MEDS: Atorvastatin Calcium 10 MG TABLET PO (09:57)
[2021-06-11] MEDS: Escitalopram Oxalate 10 MG TABLET PO (09:57)
[2021-06-11] MEDS: Aspirin 81 MG TAB.CHEW PO (09:57)
[2021-06-11] MEDS: Bacitracin Oint 14 GM TUBE 1 APPL TOPICAL (09:57)
[2021-06-11] MEDS: LORazepam 0.5 MG TABLET 0.25 MG PO ×3 (09:57→21:55)
[2021-06-11] MEDS: Divalproex Sodium Sprinkles 125 MG CAP.DR.SPR PO (09:58)
--- NOTE | 2021-06-11 12:03 | PC.NURSE ---
Pt attempted to get oob on several occasions, easily redirected, incont of urine, linen changed, turner care provided, required full assistance with bed bath w/ wash cloth and brushing hair. Pt refused oral care at this time- will attempt again.
--- NOTE | 2021-06-11 12:06 | PC.NURSE ---
spoke with daughter, adeline baker, would like to be updated related to her mothers condition and she will relay the info to pt's who is deaf. daughters number in previous note
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
--- NOTE | 2021-06-11 14:22 | PC.NURSE ---
Mony ([phone]) spoke with this RN regarding [facility] for pt - would like update from CARE team/CM when a decision is made
[2021-06-11 15:08] VITALS: BP 144/82; PULSE 82; RESP 16; TEMP 36.4; O2SAT 96
--- NOTE | 2021-06-11 15:11 | PC.NURSE ---
Pt had large amount of watery, loose stool on commode. Provider aware.
[2021-06-11 20:00] VITALS: RESP 18
[2021-06-11] MEDS: Divalproex Sodium Sprinkles 125 MG CAP.DR.SPR 250 MG PO (21:54)
[2021-06-11] MEDS: QUEtiapine Fumarate 50 MG TABLET PO (21:55)
[2021-06-11] MEDS: Melatonin 3 MG TABLET 6 MG PO (21:55)
[2021-06-11 22:23] VITALS: BP 139/64
--- NOTE | 2021-06-11 22:37 | PC.NURSE ---
pt did not take her evening PO medications well, she chewed all of them against t/w direction to swallow only.
[2021-06-12 01:32] VITALS: BP 95/54; PULSE 59; RESP 16; O2SAT 95
--- NOTE | 2021-06-12 06:20 | PC.NURSE ---
PT HAS DRY PAD AND GOWN, WAKES EASILY TO TOUCH.
--- NOTE | 2021-06-12 07:21 | PC.NURSE ---
Patient is alert and lying in bed quiety without noted distress. Water offered to drink.
[2021-06-12 07:42] VITALS: BP 119/65; PULSE 57; RESP 16; O2SAT 96
--- NOTE | 2021-06-12 08:00 | PC.NURSE ---
Patient would only eat 4 bites of oatmeal and and a couple of bites of eggs before refusing to eat anything else. Pt refused to drink anything at this time
--- NOTE | 2021-06-12 09:36 | PC.NURSE ---
Patient is resting quietly in bed with eyes closed in no distress. Pt has been calm and cooperative with staff this morning
[2021-06-12 09:41] VITALS: BP 123/63; PULSE 56; RESP 16; O2SAT 99
--- NOTE | 2021-06-12 09:50 | MHC.CM.ED ---
Patient has been cleared by Psych for requiring inpatient psych. T/W spoke with patient's daughter, Serena via telephone at [phone]. Patient moved to [facility] in April. Since then, patient's school psychology professor, Radha has been working with patient to get an appropriate medication regimen. Serena and Radha feel patient will need a referral to [place] [facility]. T/W attempted to reach Radha at [facility]. Waiting for a return telephone call. Kajal from Care team aware. Continue to monitor for d/c needs.
[2021-06-12] MEDS: Aspirin 81 MG TAB.CHEW PO (09:56)
[2021-06-12] MEDS: LORazepam 0.5 MG TABLET 0.25 MG PO ×2 (09:56→17:08)
[2021-06-12] MEDS: Atorvastatin Calcium 10 MG TABLET PO (09:56)
[2021-06-12] MEDS: Escitalopram Oxalate 10 MG TABLET PO (09:57)
--- NOTE | 2021-06-12 10:02 | PC.NURSE ---
Patient is resting quietly in bed. Spouses is at bedside. Pt given apple juice to drink and tolerated 120 ml well
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
--- NOTE | 2021-06-12 12:45 | PC.NURSE ---
Attempted to feed patient lunch. Patient took one bite of carrots, and 3 bites of mashed potatoes before she refused to take anymore. Pt would clamp her mouth shut. Patient checked for any incontinent voids. pt dry. Spouse is at bedside and states that patient has not been eating lately that she clenches her jaws shut.
[2021-06-12 15:28] VITALS: BP 139/68; PULSE 58; RESP 18; TEMP 37.1; O2SAT 94
--- NOTE | 2021-06-12 15:33 | MHC.CM.ED ---
Per [facility], they have received the referral but there are no beds available at their facility at this time. Anticipate patient will remain in ER overnight. Will have to re-eval behaviors to see if patient can return to [facility] tomorrow. Continue to monitor for d/c needs.
--- NOTE | 2021-06-12 16:08 | MHC.CM.ED ---
Received telephone call from patient's daughter, Serena. Serena wants patient to return to [facility]. T/W explained [facility] would not take patient back until she is not aggressive and taking her medication. T/W explained [facility] did not have a bed. Serena upset patient has to stay in the ER. Serean request referrals be made to [facility] and [facility]. T/W called [facility] and [facility]. Neither one of these units have inpatient [facility] unit. Anticipate pateint will remain in ER. Jodie will be the nurses on 06/13 at [facility]. T/W will reach out to the facility tomorrow to report behaviors and medication compliance. Continue to monitor for d/c needs.
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
[2021-06-12] MEDS: Divalproex Sodium Sprinkles 125 MG CAP.DR.SPR 250 MG PO (17:05)
--- NOTE | 2021-06-12 17:28 | PC.NURSE ---
Patient given pudding and milk to drink. Pt only took 5 bites of pudding.
--- NOTE | 2021-06-12 18:00 | PC.NURSE ---
Patient uncovering herself, pulling gown up and yelling. When staff tries to cover her back up and calm patient. Pt grabs at staff and pinches.
[2021-06-13] VITALS: BP 130/72; PULSE 75; RESP 16
--- NOTE | 2021-06-13 02:46 | PC.NURSE ---
PT SLEEPING, WAKES TO VOICE, RESPIRATIONS EASY, N/L. SKIN W/D.
--- NOTE | 2021-06-13 04:15 | PC.NURSE ---
PT AWAKE AND CONSTANTLY GETTING NAKED. GOWN RE-APPLIED TO PT. PT RESTING IN HOSPITAL BED IN NAD. WILL CONTINUE TO MONITOR PT.
--- NOTE | 2021-06-13 05:13 | PC.NURSE ---
PT TALKING TO HERSELF LOUDLY. PT GIVEN WARM BLK. PT IN NAD, WILL CONTINUE TO MONITOR PT.
[2021-06-13 06:00] VITALS: BP 132/68; PULSE 69; RESP 16
[2021-06-13 07:06] VITALS: BP 124/46; PULSE 74; RESP 16; TEMP 36.8; O2SAT 97
--- NOTE | 2021-06-13 08:28 | MHC.CM.ED ---
Patient remains in ER. Spoke with [place] in Care Team. He will assess patient to see if she is appropriate for [facility]. Continue to monitor for d/c needs.
[2021-06-13] MEDS: Aspirin 81 MG TAB.CHEW PO (08:33)
[2021-06-13] MEDS: Escitalopram Oxalate 10 MG TABLET PO (08:33)
[2021-06-13] MEDS: Atorvastatin Calcium 10 MG TABLET PO (08:33)
[2021-06-13] MEDS: LORazepam 0.5 MG TABLET 0.25 MG PO ×3 (08:34→20:47)
[2021-06-13] MEDS: Divalproex Sodium Sprinkles 125 MG CAP.DR.SPR 250 MG PO ×2 (08:37→20:47)
[2021-06-13 10:13] VITALS: RESP 20
--- NOTE | 2021-06-13 10:37 | PC.NURSE ---
patient calm, cooperative and polite with staff this morning during care. ate breakfast and took all her meds with out difficulty. currently resting quietly.
--- NOTE | 2021-06-13 11:46 | MHC.CM.ED ---
Received voicemail from patient's daughter, Serena, requesting referral to [facility] for their inpatient psych unit. [facility] None of their facilities have inpatient psych beds available today. Continue to monitor for d/c needs.
[2021-06-13 15:11] VITALS: BP 120/57; PULSE 66; RESP 16; O2SAT 99
--- NOTE | 2021-06-13 15:12 | PC.NURSE ---
incontinence care provided. patient repositioned. Patient feeding herself lunch.
[2021-06-13] MEDS: Sennosides/Docusate Sodium TABLET 1 TAB PO (20:47)
[2021-06-13] MEDS: Melatonin 3 MG TABLET 6 MG PO (20:47)
[2021-06-13] MEDS: QUEtiapine Fumarate 50 MG TABLET PO (20:47)
[2021-06-13 20:53] VITALS: BP 113/49; PULSE 67; RESP 16; O2SAT 96
--- NOTE | 2021-06-13 21:03 | PC.NURSE ---
Patient repositioned and changed for incontinence.
--- NOTE | 2021-06-13 23:39 | MHC.CM.ED ---
CARE team did not see pt tonight. Will speak with taxi cab driver Yoselin about pt and see if she feels re-evaluation for [facility] is necessary. Etelvina RN concerned about pt returning to [facility], because when she spoke to the nurse there, they said the patient lived in assisted living. Pt has been incontinent and Etelvina is concerned how patient can live in assisted living given her level of dementia. This concern is noted and will f/u in the am. CM to follow for d/c needs.
[2021-06-14] VITALS: RESP 16
[2021-06-14 06:00] VITALS: BP 118/76; PULSE 74; RESP 16; O2SAT 96
--- NOTE | 2021-06-14 07:43 | PC.NURSE ---
assumed care of patient at 0700- patient resting comfortably in the hospital bed in NAD. With help of pharmacy picking tech(s) patient was cleaned up for the day, bed linens changed, hospital gown removed and replaced with a clean one and patient was wiped down and freshened up. Patient was conversing with staff, alert to herself only but voiced no complaints/denied any pain and appeared comfortable.
[2021-06-14] MEDS: LORazepam 0.5 MG TABLET 0.25 MG PO ×2 (08:00→21:46)
[2021-06-14] MEDS: Aspirin 81 MG TAB.CHEW PO (08:01)
[2021-06-14] MEDS: Escitalopram Oxalate 10 MG TABLET PO (08:01)
[2021-06-14] MEDS: Atorvastatin Calcium 10 MG TABLET PO (08:01)
[2021-06-14] MEDS: Bacitracin Oint 14 GM TUBE 1 APPL TOPICAL ×2 (08:04→21:49)
[2021-06-14] MEDS: Levothyroxine Sodium 88 MCG TABLET PO (08:05)
--- NOTE | 2021-06-14 13:17 | PC.NURSE ---
Patient assisted with eating her lunch, approximately 8oz of liquid drank and 50% of her meal eaten.
--- NOTE | 2021-06-14 15:19 | P.CNPS_ITS ---
History of Present Illness Date of Service: 06/14/21 <Gabrielle Flannery - Last Filed: 06/14/21 15:45> Chief Complaint: behavioral <Gabrielle Flannery - Last Filed: 06/14/21 15:45> Reason for Consult: Reassessment <Gabrielle Flannery - Last Filed: 06/14/21 15:45> Requesting physician: Shirley Miller <Gabrielle Flannery - Last Filed: 06/14/21 15:45> Discussed with referring provider: Yes <Gabrielle Flannery - Last Filed: 06/14/21 15:45> Sources of Information: patient interviewed and chart reviewed <Gabrielle Flannery Last Filed: 06/14/21 15:45> Additional Sources of Information: adoption manager <Gabrielle Flannery Last Filed: 06/14/21 15:45> HPI Narrative: Psychiatry was asked to meet with patient again regarding behaviors to help determine whether or not they are psychiatrically based or related to her dementia. Patient is a 81-year-old female with a past medical history of dementia, breast cancer, high cholesterol, hypothyroidism here from assisted living with concern for behavioral change such as hitting staff and other residents. Patient was assessed by Psychiatry on 06/11/2021, and was found to not be appropriate for psych admission at the time. She does have a history of intermittently refusing medications inpatient care resulting in aggressive behaviors as per chart. Myself and Dr. Vallejo met with patient, her was patient. During encounter, patient appeared to be resting comfortably, with eyes closed. No apparent distress noted. Patient's was concerned, and stated that he wanted her to be [facility]. Case was discussed with case supervisor as well. A review of medications shows that patient does have scheduled Seroquel at bedtime 50 mg, as well as 12.5 mg twice daily as a p.r.n.. She also has a 2.5 dose of Zyprexa available once as a p.r.n. for agitation if needed. It appears patient has not needed to utilize these prn medications for anxiety / agitation. She is also receiving lexapro 10m g daily, as well as depakote sprinkles 250mg at bedtime. <Gabrielle Flannery - Last Filed: 06/14/21 15:45> Psychiatry was asked to meet with patient again regarding behaviors to help determine whether or not they are psychiatrically based or related to her dementia. Patient is a 81-year-old female with a past medical history of dementia, breast cancer, high cholesterol, hypothyroidism here from assisted living with concern for behavioral change such as hitting staff and other residents. Patient was assessed by Psychiatry on 06/11/2021, and was found to not be appropriate for psych admission at the time. She does have a history of intermittently refusing medications inpatient care resulting in aggressive behaviors as per chart. Myself and Dr. Vallejo met with patient, her 's patient. During encounter, patient appeared to be resting comfortably, with eyes closed. No apparent distress noted. Patient's was concerned, and stated that he wanted her to be [facility]. Case was discussed with case supervisor as well. A review of medications shows that patient does have scheduled Seroquel at bedtime 50 mg, as well as 12.5 mg twice daily as a p.r.n.. She also has a 2.5 dose of Zyprexa available once as a p.r.n. for agitation if needed. It appears patient has not needed to utilize these prn medications for anxiety / agitation. She is also receiving lexapro 10mg daily, as well as depakote sprinkles 250mg at bedtime. <Marcelino Vallejo - Last Filed: 06/14/21 16:12> Past Psychiatric History: no known past hx of inpatient psych admissions or crisis evals. <Gabrielle Flannery - Last Filed: 06/14/21 15:45> Medical Evaluation Reviewed: Yes <Gabrielle Flannery - Last Filed: 06/14/21 15:45> Review of Systems Review of Systems Yes Unobtainable due to mental status <Gabrielle Flannery - Last Filed: 06/14/21 15:45> COUNT INCLUDES THE [facility] Medical History: Medical History (Updated 06/14/21 @ 15:36 by Gabrielle Flannery) Breast CA Dementia Hypercholesteremia Hypothyroid <Gabrielle Flannery - Last Filed: 06/14/21 15:45> Diagnostics Vital Signs (24Hr): Vital Signs - 24 hr 06/13/21 20:53 06/14/21 00:00 06/14/21 06:00 Pulse Rate 67 74 Respiratory Rate 16 16 16 Blood Pressure 113/49 L 118/76 Pulse Oximetry 96 96 Body Mass Index 22.8 <Gabrielle Alma Delia - Last Filed: 06/14/21 15:45> Labs Results: : 06/14/21 15:31 06/14/21 15:31 <Gabrielle Alma Delia - Last Filed: 06/14/21 15:45> Imaging Radiology Impressions: ITS Impressions Chest X-Ray 06/10/21 13:24 IMPRESSION: Some resolved left upper lung density with fullness of the left hilum. Underlying lesion cannot be excluded There is also ill-defined opacity at the left base which suggests an area of infiltrate. Consider CT to fully evaluate versus close follow-up Chest CT 06/10/21 15:14 IMPRESSION: * No evidence of acute pneumonia. * The bronchial reza are thickened, particularly in lower lobes, and there are endobronchial secretions. Query if there is any history of asthma or bronchitis. Mild aspiration is a possibility, as well. 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 * Cardiomegaly without pulmonary edema. * Small bilateral pleural effusions. * There is volume loss and chronic opacity in the left upper lobe, which probably represents fibrosis, but a segment of this opacity has a somewhat nodular configuration. For this reason, recommend consideration for noncontrast chest CT follow up in 3 months to ensure stability. Head CT 06/10/21 15:14 IMPRESSION: No acute intracranial pathology. Once again atrophy and white matter ischemic changes are noted <Gabrielle Alma Delia - Last Filed: 06/14/21 15:45> Mental Status Exam Mental Status Exam Narrative: Patient was resting in bed, eyes closed. Unable to assess mental status. In hospital gown, appears stated age. No overt distress noted. <Gabrielle Alma Delia - Last Filed: 06/14/21 15:45> Medications Medications Current Medications Generic Name Dose Route Start Last Admin Trade Name Freq PRN Reason Stop Dose Admin Acetaminophen 650 mg 06/10/21 18:41 Acetaminophen 325 Mg Tablet PO Q4H PRN Pain, Mild Aspirin 81 mg 06/11/21 09:00 06/14/21 08:01 Aspirin 81 Mg Tab.Chew PO 81 mg DAILY ZACARIAS Administration Atorvastatin Calcium 10 mg 06/10/21 20:30 06/14/21 08:01 Atorvastatin Calcium 10 Mg Tablet PO 10 mg DAILY ZACARIAS Administration Bacitracin 1 appl 06/10/21 21:00 06/14/21 08:04 Bacitracin Oint 14 Gm Tube TOPICAL 1 appl BID ZACARIAS Administration Protocol Divalproex Sodium 250 mg 06/10/21 21:00 06/13/21 20:47 Divalproex Sodium Sprinkles 125 Mg Cap. PO 250 mg BEDTIME ZACARIAS Administration Divalproex Sodium 250 mg 06/12/21 16:00 06/14/21 08:06 Divalproex Sodium Sprinkles 125 Mg Cap. PO Not Given DAILY ZACARIAS Escitalopram Oxalate 10 mg 06/10/21 18:45 06/14/21 08:01 Escitalopram Oxalate 10 Mg Tablet PO 10 mg DAILY ZACARIAS Administration Levothyroxine Sodium 44 mcg 06/11/21 06:30 06/11/21 08:26 Levothyroxine Sodium 88 Mcg Tablet PO 44 mcg [id number]@0630 ZACARIAS Administration Levothyroxine Sodium 88 mcg 06/12/21 06:30 06/14/21 08:05 Levothyroxine Sodium 88 Mcg Tablet PO 88 mcg [id number]@0630 ZACARIAS Administration Lorazepam 0.25 mg 06/10/21 21:00 06/14/21 08:00 Lorazepam 0.5 Mg Tablet PO 0.25 mg TID ZACARIAS Administration Melatonin 6 mg 06/10/21 21:00 06/13/21 20:47 Melatonin 3 Mg Tablet PO 6 mg BEDTIME ZACARIAS Administration Olanzapine 2.5 mg 06/11/21 13:39 Olanzapine 2.5 Mg Tablet PO ONCE PRN agitation Quetiapine Fumarate 50 mg 06/10/21 21:00 06/13/21 20:47 Quetiapine Fumarate 50 Mg Tablet PO 50 mg BEDTIME ZACARIAS Administration Quetiapine Fumarate 12.5 mg 06/10/21 18:49 Quetiapine Fumarate 25 Mg Tablet PO BID PRN anxiety/restlessness Senna/Docusate Sodium 1 tab 06/10/21 21:00 06/13/21 20:47 Sennosides/Docusate Sodium Tablet PO 1 tab BEDTIME ZACARIAS Administration <Gabrielle Alam Delia - Last Filed: 06/14/21 15:45> Allergies Allergies Allergy/AdvReac Type Severity Reaction Status Date / Time No Known Allergies Allergy Verified 12/29/20 23:39 [No Known Allergies*] <Gabrielle Alma Delia - Last Filed: 06/14/21 15:45> Assessment & Plan Assessment & Plan (1) Dementia: Status: Acute <Gabrielle Alma Delia - Last Filed: 06/14/21 15:45> Code(s): F03.90 - Unspecified dementia without behavioral disturbance <Gabrielle Alma Delia - Last Filed: 06/14/21 15:45> Assessment and Plan: Patient continues with dementia. She is [facility] by Radha White, range aid. She currently resides at the [facility]. <Gabrielle Flannery - Last Filed: 06/14/21 15:45> Assessment and Plan: Labs have been ordered, including CBC, Chem 7, UA today, and Depakote level for tomorrow morning. Patient appears to be in better behavioral control over past 4 days. Would encourage use of PRNs that are available as appropriate, such as Zyprexa and Seroquel. This has been discussed with case supervisor. <Gabrielle Flannery - Last Filed: 06/14/21 15:45> Greater than 50% of the session was spent on counseling and/or coordination of care <Gabrielle Flannery - Last Filed: 06/14/21 15:45> Guardian/Caregiver educated on: diagnosis and therapeutic strategies <Gabrielle Flannery - Last Filed: 06/14/21 15:45> Informed Consent: understands <Gabrielle Flannery - Last Filed: 06/14/21 15:45>
[2021-06-14 15:33] VITALS: BP 98/41; PULSE 53; RESP 12; TEMP 36.5; O2SAT 98
[2021-06-14 15:35] LABS: MANUAL DIFF FLAG NO
[2021-06-14 15:38] LABS: Basophils Absolute Auto 0.1 X10*3/uL (0.0-0.2); Basophils Percent Auto 0.7 % (0-2); Eosinophils Absolute Auto 0.5 X10*3/uL (0.0-0.4); Hematocrit 29.9 % (37-47); Hemoglobin 9.6 g/dl (12.0-16.0); Imm Gran Abs Auto 0.02 X10*3/uL (0.00-0.03); Imm Gran Pct Auto 0.3 % (0.0-0.4); Lymphocytes Absolute Auto 1.6 X10*3/uL (1.2-4.9); Lymphocytes Percent Auto 22.6 % (20-40); Mean Corpuscular HGB Conc 32.1 g/dl (31.0-35.0); Mean Corpuscular Hemoglobin 29.9 pg (27.0-33.0); Mean Corpuscular Volume 93.1 fL (80-98); Mean Platelet Volume 10.1 fL (9.4-12.3); Monocytes Absolute Auto 0.7 X10*3/uL (0.1-1.2); Monocytes Percent Auto 10.2 % (2-11); Neutrophils Absolute Auto 4.2 X10*3/uL (2.0-8.3); Neutrophils Percent Auto 59.2 % (45-73); Platelet Count 302 X10*3/uL (160-400); Red Blood Count 3.21 X10*6/uL (4.20-5.50); Red Cell Distribution Width 14.9 % (11.0-16.0)
[2021-06-14 16:07] LABS: Anion Gap 9 (12-20); Blood Urea Nitrogen 10 mg/dL (9-16); Carbon Dioxide 31 mmol/L (22-29); Chloride 106 mmol/L (96-108); Creatinine Clr Calc Pharmacy 53.5; Estimated Glomerular Filt Rate > 60; Glucose Random 91 mg/dL (60-115); Sodium 143 mmol/L (135-145)
--- NOTE | 2021-06-14 16:37 | PC.NURSE ---
this rn went to administer 3pm ativan but patient was not awake enough for this RN to deem it safe for administration- when this RN went to document against the medication it appears it had already been given by a different RN and the pyxis confirmed prior removal however the med was not documented in the patients mar. propellant charge loader made aware, provider aware- the ativan pulled by this RN was discarded
--- NOTE | 2021-06-14 18:22 | PC.NURSE ---
patient incontinent of urine- with help of another RN, patients bedsheets were changed and new hospital gown was placed on the patient and skin care performed
[2021-06-14 19:13] VITALS: BP 110/50; PULSE 71; RESP 12; TEMP 36.8; O2SAT 96
[2021-06-14 21:05] VITALS: BP 121/58; PULSE 56; RESP 12; TEMP 36.9; O2SAT 97
[2021-06-14] MEDS: Sennosides/Docusate Sodium TABLET 1 TAB PO (21:43)
[2021-06-14] MEDS: QUEtiapine Fumarate 50 MG TABLET PO (21:44)
[2021-06-14] MEDS: Melatonin 3 MG TABLET 6 MG PO (21:45)
[2021-06-14] MEDS: Divalproex Sodium Sprinkles 125 MG CAP.DR.SPR 250 MG PO (21:48)
--- NOTE | 2021-06-14 22:27 | PC.NURSE ---
Pt asleep on HB in between pt care. Pt aaox1, oriented to self only. Pt medicated per MAR with pills whole in pudding, tolerated well. Pt denies pain/discomfort, is cooperative with pt care while awake. Pt repositioned and assessed for incontinence needs; did not need inc care at this time. Pt bed lowered in locked position, rails raised, call may within reach, bed alarm active and audible. pt with red fall prevention socks on, red fall wrist band on, and red star posted outside of room.
[2021-06-15 00:50] VITALS: RESP 19
--- NOTE | 2021-06-15 00:51 | PC.NURSE ---
pt assessed for need of incontinence care, not needed at this point. HB in lowest locked position, rails raised, call may within reach, bed alarm active and audible.
[2021-06-15 05:18] VITALS: BP 118/55; PULSE 61; RESP 17; TEMP 36.9; O2SAT 99
--- NOTE | 2021-06-15 05:19 | PC.NURSE ---
Pt found restless on bed, this RN assessed for incontinence care needs. Pt found to be incontinent of urine, inc care provided. When asked are you comfortable? Pt states now I am. This is wonderful, sweetie. Pt bed in low locked position, rails raised, call may within reach, bed alarm active and audible. Pt turned to right side with pillow under left.
[2021-06-15 07:39] VITALS: BP 141/59; PULSE 53; RESP 15; TEMP 36.5; O2SAT 98
--- NOTE | 2021-06-15 08:13 | MHC.CM.ED ---
Patient remains in ER. Depakote level is pending. If improved from last level, anticipate patient will be able to return to [facility]. Continue to monitor for d/c needs.
[2021-06-15] MEDS: Levothyroxine Sodium 88 MCG TABLET PO (08:53)
[2021-06-15] MEDS: LORazepam 0.5 MG TABLET 0.25 MG PO (08:54)
[2021-06-15] MEDS: Atorvastatin Calcium 10 MG TABLET PO (08:54)
[2021-06-15] MEDS: Escitalopram Oxalate 10 MG TABLET PO (08:54)
[2021-06-15] MEDS: Aspirin 81 MG TAB.CHEW PO (08:54)
[2021-06-15] MEDS: Bacitracin Oint 14 GM TUBE 1 APPL TOPICAL (10:29)
[2021-06-15] MEDS: Potassium Chloride ER 20 MEQ TAB.ER.PRT 60 MEQ PO (10:30)
[2021-06-15] MEDS: Divalproex Sodium Sprinkles 125 MG CAP.DR.SPR 250 MG PO (10:30)
--- NOTE | 2021-06-15 13:19 | MHC.CM.ED ---
Depakote level is still pending. T/W spoke with the lab. That machine is currently down and in the process of being fixed. Rachelle social media project manager for [employer] made aware via telephone at [phone]. Continue to monitor for d/c needs.
[2021-06-15 14:00] VITALS: BP 115/82; PULSE 55; RESP 16; O2SAT 98
[2021-06-15 14:03] LABS: Valproate 27.6 mcg/mL (50.0-100.0)
--- NOTE | 2021-06-15 14:29 | PC.NURSE ---
PT IS AT HER BASELINE, AT BEDSIDE. PT ASSISSTED TO COMMODE, ASSISTED WITH FEEDING, CHANGED AND REPOSITIONED NEEDED. PLAN TO BE DISCHARGED TO SNF AT SOME POINT TODAY
--- NOTE | 2021-06-15 14:36 | PC.NURSE ---
NURSE TO NURSE HANDOFF GIVEN BY MAXIMINO HARE
--- NOTE | 2021-06-15 14:58 | MHC.CM.ED ---
[facility] spoke with Lashay at [facility]. Yaritza requesting any medication changes have prescriptions sent to [facility] in [place]. Copy of ER d/c summary faxed to [facility]. [facility] booked for 330pm. Med nec in chart. Patient's , Ty siu. Above information explained. Ty verbalized understanding. Spoke with Rachelle social insurance administrator via telephone at [phone]. Above information explained. Leonila LIN and Nelia BENSON aware. Continue to monitor for d/c needs.
[2021-06-15] MEDS: OLANZapine 2.5 MG TABLET PO (16:03)
== END 2021-06-15 16:30 | disposition skilled nursing facility (03) ==
PROVIDERS: Nurse Practitioner Family; Nurse Practitioner Psychiatric/Mental Health; Emergency Provider Emergency Medicine Emergency Medical Services; PCP Internal Medicine
DX: F03.91 Unspecified dementia, unspecified severity, with behavioral disturbance (principal); E78.00 Pure hypercholesterolemia, unspecified; Z79.82 Long term (current) use of aspirin; Z79.02 Long term (current) use of antithrombotics/antiplatelets; Z79.899 Other long term (current) drug therapy; Z20.822 Contact with and (suspected) exposure to COVID-19
CPT/HCPCS: 0241U; 36415; 51701; 70450; 71046; 71250; 80048; 80076; 80164; 81003; 83735; 85025; 93005; 96372; 99285